=== PATIENT | male | born 1960 | race African-American/Black ===

== ENCOUNTER 2017-10-12 06:57 | Observation (INO) ==
[2017-10-14 22:47] VITALS: BP 92/48
== END 2017-10-14 15:10 | disposition home or self-care (01) ==
LOC: EDUNIT# → EDBD → N.ED 06:57 → N.EDINP 06:57 → SUPCPDRO 09:21 → N.2W 10:59 → N.4E 12:10
PROVIDERS: ADMIT Emergency Medicine; ATTEND Emergency Medicine

== ENCOUNTER 2018-01-08 04:58 | Observation (INO) ==
[2018-01-08] MEDS ORDERED: PANTOPRAZOLE 40 MG VIAL IV STA (05:17)
[2018-01-08] MEDS ORDERED: ONDANSETRON 4 MG/2 ML VIAL IV STA (05:17)
[2018-01-08] MEDS ORDERED: KETOROLAC 30 MG/1 ML VIAL IV STA (05:17)
[2018-01-08 05:42] LABS: Basophils # 0.1 10*3/uL (0.0-0.2); Basophils % 0.7 % (0.0-0.8); Eosinophils # 0.1 10*3/uL (0.0-0.87); Eosinophils % 1.8 % (0.00-10.9); Hematocrit 39.3 VOL% (42.0-52.0); Hemoglobin 12.2 GM/DL (14.0-18.0); Immature Granulocytes % 0.6 %; Immature Granulocytes Absolute 0.04 #; Lymphocytes # 1.6 10*3/uL (1.4-4.0); Lymphocytes % 23.8 % (21.2-54.2); Mean Corpuscular Hemoglobin 26 PG (27-34); Mean Corpuscular Volume 85.1 FL (87-102); Mean Platelet Volume 10.6 FL (9.6-12.0); Monocytes # 0.6 10*3/uL (0.11-0.8); Monocytes % 9.1 % (1.7-12.7); Neutrophils # 4.4 10*3/uL (1.4-7.4); Platelet Count 311 T/CUMM (130-400); Red Blood Count 4.62 MC/CUMM (3.8-5.5); Red Cell Distribution Width 19.4 % (9.3-17.3); White Blood Count 6.8 T/CUMM (4-12)
[2018-01-08] MEDS ORDERED: FUROSEMIDE 40 MG/4 ML VIAL IV STA (05:46)
[2018-01-08 06:11] LABS: Albumin 2.9 G/DL (3.4-5.0); Calcium 8.4 MG/DL (8.5-10.1); Osmolality,Calculated 286.1 MOS/KG (273-304); Potassium 4.2 MMOL/L (3.5-5.1); Total Protein 6.7 G/DL (6.4-8.3)
[2018-01-08] MEDS ORDERED: ONDANSETRON 4 MG/2 ML VIAL IV PRN (10:41)
[2018-01-08] MEDS ORDERED: DOCUSATE SODIUM 100 MG CAPSULE PO PRN (10:41)
[2018-01-08] MEDS ORDERED: LACTULOSE 20 GM/30 ML UDCUP PO PRN (10:41)
[2018-01-08] MEDS ORDERED: MAGNESIUM SULF RIDER 4 GM in PREMIX 1 EACH IV PRN (10:41)
[2018-01-08] MEDS ORDERED: MAGNESIUM SULF RIDER 2 GM in PREMIX 1 EACH IV PRN (10:41)
[2018-01-08] MEDS ORDERED: NICOTINE 21 MG/24 HR PATCH TRANSDERM PRN (10:41)
[2018-01-08] MEDS ORDERED: ALBUTEROL/IPRATROPIUM 3 ML NEB RESP TX PRN (11:10)
[2018-01-08] MEDS: ENOXAPARIN 40 MG/0.4 ML SYRINGE SUBCUT SCH ×2 (13:12→20:49)
[2018-01-08] MEDS: methylPREDNISolone SOD SUC 40 MG/1 ML VIAL IV SCH (14:19)
[2018-01-08] MEDS: FUROSEMIDE 40 MG/4 ML VIAL IV SCH (15:38)
[2018-01-09] MEDS: methylPREDNISolone SOD SUC 40 MG/1 ML VIAL IV SCH (05:56)
[2018-01-09 06:07] LABS: Basophils % 0.2 % (0.0-0.8); Hematocrit 39.1 VOL% (42.0-52.0); Hemoglobin 11.8 GM/DL (14.0-18.0); Immature Granulocytes % 0.2 %; Immature Granulocytes Absolute 0.01 #; Lymphocytes # 0.6 10*3/uL (1.4-4.0); Lymphocytes % 10.8 % (21.2-54.2); Mean Corpuscular HGB Conc 30.2 GM/DL (32-36); Mean Corpuscular Hemoglobin 26 PG (27-34); Mean Corpuscular Volume 85.4 FL (87-102); Mean Platelet Volume 10.8 FL (9.6-12.0); Monocytes # 0.2 10*3/uL (0.11-0.8); Monocytes % 4.2 % (1.7-12.7); Neutrophils # 4.6 10*3/uL (1.4-7.4); Neutrophils % 84.6 % (38.7-73.9); Platelet Count 292 T/CUMM (130-400); Red Blood Count 4.58 MC/CUMM (3.8-5.5); Red Cell Distribution Width 19.3 % (9.3-17.3); White Blood Count 5.5 T/CUMM (4-12)
[2018-01-09 06:34] LABS: Calcium 8.4 MG/DL (8.5-10.1); Osmolality,Calculated 284.5 MOS/KG (273-304); Potassium 4.5 MMOL/L (3.5-5.1)
[2018-01-09] MEDS ORDERED: CARVEDILOL 3.125 MG TABLET PO SCH (10:30)
[2018-01-09] MEDS: FUROSEMIDE 40 MG/4 ML VIAL IV SCH ×2 (10:35→17:32)
[2018-01-09] MEDS: PANTOPRAZOLE 40 MG TABLET PO SCH (10:35)
[2018-01-09] MEDS: SPIRONOLACTONE 25 MG TABLET PO SCH (10:40)
[2018-01-09] MEDS: ENOXAPARIN 40 MG/0.4 ML SYRINGE SUBCUT SCH (21:16)
[2018-01-10 06:20] LABS: Basophils % 0.1 % (0.0-0.8); Hematocrit 37.8 VOL% (42.0-52.0); Hemoglobin 11.7 GM/DL (14.0-18.0); Immature Granulocytes % 0.7 %; Lymphocytes # 0.9 10*3/uL (1.4-4.0); Lymphocytes % 6.2 % (21.2-54.2); Mean Corpuscular Hemoglobin 27 PG (27-34); Mean Corpuscular Volume 85.7 FL (87-102); Mean Platelet Volume 10.4 FL (9.6-12.0); Monocytes % 7.2 % (1.7-12.7); NRBC # 0.02 10*3/uL; Neutrophils # 11.8 10*3/uL (1.4-7.4); Neutrophils % 85.8 % (38.7-73.9); Platelet Count 288 T/CUMM (130-400); Red Blood Count 4.41 MC/CUMM (3.8-5.5); Red Cell Distribution Width 19.3 % (9.3-17.3); White Blood Count 13.7 T/CUMM (4-12)
[2018-01-10 06:52] LABS: Calcium 8.3 MG/DL (8.5-10.1); Osmolality,Calculated 283.7 MOS/KG (273-304); Potassium 4.1 MMOL/L (3.5-5.1)
[2018-01-10] MEDS ORDERED: predniSONE 20 MG TABLET PO SCH (09:00)
[2018-01-10 09:21] VITALS: BP 121/90
[2018-01-10] MEDS: FUROSEMIDE 40 MG/4 ML VIAL IV SCH (10:06)
[2018-01-10] MEDS: SPIRONOLACTONE 25 MG TABLET PO SCH (10:09)
[2018-01-10] MEDS: PANTOPRAZOLE 40 MG TABLET PO SCH (10:09)
== END 2018-01-10 11:50 | disposition home or self-care (01) ==
LOC: EDBD → EDUNIT# → N.ED 04:58 → N.EDINP 04:58 → N.2E 12:55
PROVIDERS: ADMIT Internal Medicine; ATTEND Internal Medicine

== ENCOUNTER 2018-01-16 05:31 | Observation (INO) ==
[2018-01-16] MEDS ORDERED: FUROSEMIDE 100 MG/10 ML VIAL IV STA (06:29)
[2018-01-16 06:37] LABS: Basophils % 0.5 % (0.0-0.8); Eosinophils # 0.1 10*3/uL (0.0-0.87); Eosinophils % 2.2 % (0.00-10.9); Hematocrit 38.3 VOL% (42.0-52.0); Hemoglobin 11.9 GM/DL (14.0-18.0); Immature Granulocytes % 0.5 %; Immature Granulocytes Absolute 0.03 #; Lymphocytes # 1.7 10*3/uL (1.4-4.0); Mean Corpuscular HGB Conc 31.1 GM/DL (32-36); Mean Corpuscular Hemoglobin 27 PG (27-34); Mean Corpuscular Volume 85.9 FL (87-102); Monocytes # 0.8 10*3/uL (0.11-0.8); Monocytes % 13.6 % (1.7-12.7); NRBC # 0.02 10*3/uL; Neutrophils # 3.3 10*3/uL (1.4-7.4); Neutrophils % 55.2 % (38.7-73.9); Platelet Count 251 T/CUMM (130-400); Red Blood Count 4.46 MC/CUMM (3.8-5.5); Red Cell Distribution Width 19.8 % (9.3-17.3)
[2018-01-16 06:52] LABS: Albumin 2.7 G/DL (3.4-5.0); Bilirubin,Total 0.9 MG/DL (0.2-1.0); Calcium 7.8 MG/DL (8.5-10.1); Osmolality,Calculated 283.3 MOS/KG (273-304); Potassium 4.2 MMOL/L (3.5-5.1); Total Protein 6.8 G/DL (6.4-8.3)
[2018-01-16 10:09] LABS: Barbiturates Screen,Urine Negative (Negative); Benzodiazepines Screen,Urine Negative (Negative); Cannabinoid Screen,Urine Negative (Negative); Opiate Screen,Urine Negative (Negative); Phencyclidine Screen,Urine Negative (Negative)
[2018-01-16] MEDS ORDERED: ONDANSETRON 4 MG/2 ML VIAL IV PRN (12:26)
[2018-01-16] MEDS ORDERED: ALBUTEROL 2.5 MG/3 ML NEB RESP TX PRN (12:26)
[2018-01-16] MEDS ORDERED: ACETAMINOPHEN 325 MG TABLET PO PRN (12:26)
[2018-01-16] MEDS ORDERED: DOCUSATE SODIUM 100 MG CAPSULE PO PRN (12:26)
[2018-01-16] MEDS ORDERED: ALBUTEROL/IPRATROPIUM 3 ML NEB RESP TX PRN (12:26)
[2018-01-16] MEDS ORDERED: NICOTINE 21 MG/24 HR PATCH TRANSDERM PRN (12:26)
[2018-01-16] MEDS ORDERED: NON-FORMULARY MEDICATION (Methylprednisolone Dosepak 4 MG) PO SCH (12:26)
[2018-01-16] MEDS: PANTOPRAZOLE 40 MG TABLET PO SCH (12:47)
[2018-01-16] MEDS: ENOXAPARIN 40 MG/0.4 ML SYRINGE SUBCUT SCH (12:47)
[2018-01-16] MEDS ORDERED: methylPREDNISolone 4 MG TABLET PO SCH ×2 (13:00→18:00)
[2018-01-16] MEDS: methylPREDNISolone 4 MG TABLET PO SCH ×3 (14:21→20:40)
[2018-01-16] MEDS: DILTIAZEM 30 MG TABLET PO SCH ×2 (16:23→20:40)
[2018-01-16] MEDS: FUROSEMIDE 40 MG/4 ML VIAL IV SCH (16:24)
[2018-01-17 03:46] LABS: Basophils % 0.2 % (0.0-0.8); Hematocrit 38.7 VOL% (42.0-52.0); Immature Granulocytes % 0.5 %; Immature Granulocytes Absolute 0.03 #; Lymphocytes # 0.7 10*3/uL (1.4-4.0); Lymphocytes % 10.4 % (21.2-54.2); Mean Corpuscular Hemoglobin 26 PG (27-34); Mean Corpuscular Volume 84.7 FL (87-102); Mean Platelet Volume 10.5 FL (9.6-12.0); Monocytes # 0.2 10*3/uL (0.11-0.8); Monocytes % 2.8 % (1.7-12.7); Neutrophils # 5.6 10*3/uL (1.4-7.4); Neutrophils % 86.1 % (38.7-73.9); Platelet Count 242 T/CUMM (130-400); Red Blood Count 4.57 MC/CUMM (3.8-5.5); Red Cell Distribution Width 19.5 % (9.3-17.3); White Blood Count 6.5 T/CUMM (4-12)
[2018-01-17 04:18] LABS: % Iron Saturation 6.9 % (18-50); Calcium 7.8 MG/DL (8.5-10.1); Ferritin 62.2 ng/ml (26-388); Potassium 4.3 MMOL/L (3.5-5.1); Thyroid Stimulating Hormone 0.742 uIU/ml (0.358-3.74)
[2018-01-17 04:21] LABS: Platelet Estimate Normal; Polychromasia Few
[2018-01-17 04:22] LABS: Hypochromasia Slight
[2018-01-17 04:24] LABS: Folate 11.5 NG/ML (5.4-24.0); Vitamin B12 652 PG/ML (211-911)
[2018-01-17 06:39] LABS: Sedimentation Rate-Westergren 14 MM/HR (0-20)
[2018-01-17] MEDS: methylPREDNISolone 4 MG TABLET PO SCH (08:41)
[2018-01-17] MEDS: PANTOPRAZOLE 40 MG TABLET PO SCH (08:41)
[2018-01-17] MEDS: FUROSEMIDE 40 MG/4 ML VIAL IV SCH (08:42)
[2018-01-17] MEDS: DILTIAZEM 30 MG TABLET PO SCH (08:42)
[2018-01-17] MEDS: ENOXAPARIN 40 MG/0.4 ML SYRINGE SUBCUT SCH (11:58)
[2018-01-17 12:28] VITALS: BP 105/74
[2018-01-18 09:00] LABS: Hemoglobin A1 (Alkaline) 97.4 % (96.5-98.5); Hemoglobin A2 (Alkaline) 2.6 % (1.5-3.5)
== END 2018-01-17 12:24 | disposition home or self-care (01) ==
LOC: EDUNIT# → EDBD → N.EDINP 05:31 → N.ED 05:31 → N.2E 11:38
PROVIDERS: ADMIT Internal Medicine; ATTEND Internal Medicine

== ENCOUNTER 2018-02-22 01:02 | Observation (INO) ==
[2018-02-22] MEDS ORDERED: FUROSEMIDE 100 MG/10 ML VIAL IV STA (01:45)
[2018-02-22 01:54] LABS: Basophils % 0.6 % (0.0-0.8); Eosinophils # 0.1 10*3/uL (0.0-0.87); Eosinophils % 1.1 % (0.00-10.9); Hematocrit 38.9 VOL% (42.0-52.0); Hemoglobin 11.7 GM/DL (14.0-18.0); Immature Granulocytes % 0.4 %; Immature Granulocytes Absolute 0.02 #; Lymphocytes # 1.3 10*3/uL (1.4-4.0); Lymphocytes % 23.5 % (21.2-54.2); Mean Corpuscular HGB Conc 30.1 GM/DL (32-36); Mean Corpuscular Hemoglobin 25 PG (27-34); Mean Corpuscular Volume 84.6 FL (87-102); Mean Platelet Volume 10.1 FL (9.6-12.0); Monocytes # 1.1 10*3/uL (0.11-0.8); Monocytes % 19.3 % (1.7-12.7); Neutrophils % 55.1 % (38.7-73.9); Platelet Count 219 T/CUMM (130-400); Red Cell Distribution Width 18.6 % (9.3-17.3); White Blood Count 5.4 T/CUMM (4-12)
[2018-02-22 02:12] LABS: Albumin 2.5 G/DL (3.4-5.0); Bilirubin,Total 0.9 MG/DL (0.2-1.0); Calcium 7.9 MG/DL (8.5-10.1); Osmolality,Calculated 290.6 MOS/KG (273-304); Potassium 3.8 MMOL/L (3.5-5.1)
[2018-02-22 02:25] LABS: Barbiturates Screen,Urine Negative (Negative); Benzodiazepines Screen,Urine Negative (Negative); Cannabinoid Screen,Urine Negative (Negative); Opiate Screen,Urine Negative (Negative); Phencyclidine Screen,Urine Negative (Negative)
[2018-02-22 04:01] LABS: Anisocytosis 1+; Eosinophils 1 % (0-10); Hypochromasia 1+; Lymphocytes 23 % (20-55); Ovalocytes 1+; Platelet Estimate Adequate; Segmented Neutrophils 50 % (50-85); Total Cells Counted 100
[2018-02-22] MEDS ORDERED: ONDANSETRON 4 MG/2 ML VIAL IV PRN (05:19)
[2018-02-22] MEDS ORDERED: LORazepam 2 MG/1 ML VIAL IV PRN (05:19)
[2018-02-22] MEDS ORDERED: NICOTINE 21 MG/24 HR PATCH TRANSDERM PRN (05:19)
[2018-02-22] MEDS ORDERED: ACETAMINOPHEN 325 MG TABLET PO PRN (05:19)
[2018-02-22] MEDS ORDERED: MAGNESIUM SULF RIDER 4 GM in PREMIX 1 EACH IV PRN (05:19)
[2018-02-22] MEDS ORDERED: ALBUTEROL/IPRATROPIUM 3 ML NEB RESP TX PRN (05:19)
[2018-02-22] MEDS ORDERED: LACTULOSE 20 GM/30 ML UDCUP PO PRN (05:19)
[2018-02-22] MEDS ORDERED: diphenhydrAMINE CAP 25 MG CAPSULE PO PRN (05:19)
[2018-02-22] MEDS ORDERED: MAGNESIUM SULF RIDER 2 GM in PREMIX 1 EACH IV PRN (05:19)
[2018-02-22] MEDS ORDERED: chlordiazePOXIDE 25 MG CAPSULE PO PRN (05:19)
[2018-02-22] MEDS ORDERED: hydrALAZINE 20 MG/1 ML VIAL IV PRN (05:48)
[2018-02-22 06:23] LABS: Risk Ratio 3.06; VLDL CHOLESTEROL 10.8 MG/DL
[2018-02-22] MEDS: FUROSEMIDE 40 MG/4 ML VIAL IV SCH ×2 (08:12→16:51)
[2018-02-22] MEDS: PANTOPRAZOLE 40 MG TABLET PO SCH (08:13)
[2018-02-22] MEDS: ENOXAPARIN 40 MG/0.4 ML SYRINGE SUBCUT SCH ×2 (08:13→08:15)
[2018-02-22] MEDS: FOLIC ACID 1 MG TABLET PO SCH (09:16)
[2018-02-22] MEDS: THIAMINE 100 MG TABLET PO SCH (09:16)
[2018-02-22] MEDS: MULTIVITAMIN (OCUVITE) TABLET PO SCH (09:16)
[2018-02-22] MEDS: LISINOPRIL 2.5 MG TABLET PO SCH ×2 (13:03→21:17)
[2018-02-22] MEDS: CARVEDILOL 3.125 MG TABLET PO SCH ×2 (13:03→21:17)
[2018-02-22 13:20] LABS: Apearance,Urine CLEAR (Clear); Bilirubin,Urine Negative (Negative); Blood, Urine Negative (Negative); Glucose,Urine (UA) Negative (Negative); Ketones,Urine Negative (Negative); Mucus,Urine Occasional /LPF (Occasional); Nitrite,Urine Negative (Negative); Protein,Urine Negative; RBC,Urine <1 /HPF (0-4); Urine Color Yellow (Yellow); Urine Specific Gravity 1.008 (1.001-1.035); WBC,Urine 1 /HPF (0-6)
[2018-02-22] MEDS: MORPHINE 4 MG/1 ML VIAL IV PRN ×2 (14:23→21:18)
[2018-02-23 05:53] LABS: Eosinophils # 0.1 10*3/uL (0.0-0.87); Hematocrit 37.3 VOL% (42.0-52.0); Hemoglobin 11.3 GM/DL (14.0-18.0); Immature Granulocytes % 0.5 %; Immature Granulocytes Absolute 0.02 #; Lymphocytes # 1.2 10*3/uL (1.4-4.0); Lymphocytes % 30.5 % (21.2-54.2); Mean Corpuscular HGB Conc 30.3 GM/DL (32-36); Mean Corpuscular Hemoglobin 25 PG (27-34); Mean Corpuscular Volume 83.8 FL (87-102); Mean Platelet Volume 10.2 FL (9.6-12.0); Monocytes # 0.7 10*3/uL (0.11-0.8); Monocytes % 16.4 % (1.7-12.7); Neutrophils % 49.6 % (38.7-73.9); Platelet Count 230 T/CUMM (130-400); Red Blood Count 4.45 MC/CUMM (3.8-5.5); Red Cell Distribution Width 18.5 % (9.3-17.3)
[2018-02-23 06:23] LABS: Eosinophils 2 % (0-10); Hypochromasia 1+; Lymphocytes 29 % (20-55); Platelet Estimate Adequate; Segmented Neutrophils 50 % (50-85); Total Cells Counted 100
[2018-02-23 06:33] LABS: Calcium 8.1 MG/DL (8.5-10.1); Osmolality,Calculated 284.3 MOS/KG (273-304); Potassium 3.4 MMOL/L (3.5-5.1)
[2018-02-23] MEDS ORDERED: POTASSIUM CHLORIDE 20 MEQ TABLET PO ONE (09:05)
[2018-02-23] MEDS: CARVEDILOL 3.125 MG TABLET PO SCH ×2 (09:29→21:18)
[2018-02-23] MEDS: LISINOPRIL 2.5 MG TABLET PO SCH ×2 (09:29→21:17)
[2018-02-23] MEDS: FOLIC ACID 1 MG TABLET PO SCH (09:29)
[2018-02-23] MEDS: MULTIVITAMIN (OCUVITE) TABLET PO SCH (09:29)
[2018-02-23] MEDS: ENOXAPARIN 40 MG/0.4 ML SYRINGE SUBCUT SCH ×2 (09:30→10:09)
[2018-02-23] MEDS: FUROSEMIDE 40 MG/4 ML VIAL IV SCH ×2 (09:30→15:18)
[2018-02-23] MEDS: PANTOPRAZOLE 40 MG TABLET PO SCH (10:37)
[2018-02-23] MEDS: THIAMINE 100 MG TABLET PO SCH (10:37)
[2018-02-23] MEDS: MORPHINE 4 MG/1 ML VIAL IV PRN ×2 (10:49→21:17)
[2018-02-24 05:47] LABS: Basophils # 0.1 10*3/uL (0.0-0.2); Basophils % 0.9 % (0.0-0.8); Eosinophils # 0.1 10*3/uL (0.0-0.87); Eosinophils % 1.8 % (0.00-10.9); Hemoglobin 11.4 GM/DL (14.0-18.0); Immature Granulocytes % 0.2 %; Immature Granulocytes Absolute 0.01 #; Lymphocytes # 1.7 10*3/uL (1.4-4.0); Lymphocytes % 31.6 % (21.2-54.2); Mean Corpuscular Hemoglobin 25 PG (27-34); Mean Corpuscular Volume 84.4 FL (87-102); Mean Platelet Volume 10.3 FL (9.6-12.0); Monocytes # 0.9 10*3/uL (0.11-0.8); Monocytes % 17.2 % (1.7-12.7); Neutrophils # 2.7 10*3/uL (1.4-7.4); Neutrophils % 48.3 % (38.7-73.9); Platelet Count 263 T/CUMM (130-400); Red Cell Distribution Width 18.5 % (9.3-17.3); White Blood Count 5.5 T/CUMM (4-12)
[2018-02-24 06:05] LABS: Calcium 8.3 MG/DL (8.5-10.1); Osmolality,Calculated 280.5 MOS/KG (273-304); Potassium 3.6 MMOL/L (3.5-5.1)
[2018-02-24 06:37] LABS: Eosinophils 1 % (0-10); Hypochromasia 1+; Lymphocytes 37 % (20-55); Platelet Estimate Adequate; Segmented Neutrophils 50 % (50-85); Total Cells Counted 100
[2018-02-24] MEDS: FUROSEMIDE 40 MG/4 ML VIAL IV SCH (09:05)
[2018-02-24] MEDS: ENOXAPARIN 40 MG/0.4 ML SYRINGE SUBCUT SCH ×2 (09:05→09:13)
[2018-02-24] MEDS: MULTIVITAMIN (OCUVITE) TABLET PO SCH (09:06)
[2018-02-24] MEDS: LISINOPRIL 2.5 MG TABLET PO SCH (09:06)
[2018-02-24] MEDS: CARVEDILOL 3.125 MG TABLET PO SCH (09:06)
[2018-02-24] MEDS: PANTOPRAZOLE 40 MG TABLET PO SCH (09:06)
[2018-02-24] MEDS: FOLIC ACID 1 MG TABLET PO SCH (09:06)
[2018-02-24] MEDS: THIAMINE 100 MG TABLET PO SCH (09:06)
[2018-02-24 12:07] VITALS: BP 96/68
== END 2018-02-24 15:16 | disposition home or self-care (01) ==
LOC: EDUNIT# → EDBD → N.ED 01:02 → INTOOBSV 05:19 → N.EDINP 05:19 → N.TELEN 05:50
PROVIDERS: ADMIT Internal Medicine; ATTEND Internal Medicine

== ENCOUNTER 2018-04-22 00:50 | Observation (INO) ==
[2018-04-22 02:04] LABS: Basophils % 0.6 % (0.0-0.8); Eosinophils # 0.1 10*3/uL (0.0-0.87); Hematocrit 38.8 VOL% (42.0-52.0); Immature Granulocytes % 0.1 %; Immature Granulocytes Absolute 0.01 #; Lymphocytes # 1.3 10*3/uL (1.4-4.0); Lymphocytes % 19.3 % (21.2-54.2); Mean Corpuscular HGB Conc 28.6 GM/DL (32-36); Mean Corpuscular Hemoglobin 24 PG (27-34); Mean Platelet Volume 10.8 FL (9.6-12.0); Monocytes % 14.6 % (1.7-12.7); Neutrophils # 4.4 10*3/uL (1.4-7.4); Neutrophils % 64.4 % (38.7-73.9); Platelet Count 241 T/CUMM (130-400); Red Blood Count 4.62 MC/CUMM (3.8-5.5); Red Cell Distribution Width 19.6 % (9.3-17.3); White Blood Count 6.8 T/CUMM (4-12)
[2018-04-22 02:05] LABS: Hemoglobin 11.1 GM/DL (14.0-18.0)
[2018-04-22 02:23] LABS: Albumin 2.9 G/DL (3.4-5.0); Bilirubin,Total 1.1 MG/DL (0.2-1.0); Osmolality,Calculated 278.5 MOS/KG (273-304); Potassium 3.8 MMOL/L (3.5-5.1)
[2018-04-22] MEDS ORDERED: ONDANSETRON 4 MG/2 ML VIAL IV PRN (03:46)
[2018-04-22] MEDS ORDERED: FUROSEMIDE 40 MG/4 ML VIAL IV STA (03:50)
[2018-04-22] MEDS ORDERED: ENOXAPARIN 40 MG/0.4 ML SYRINGE SUBCUT SCH (04:00)
[2018-04-22 04:56] LABS: Risk Ratio 2.9
[2018-04-22 05:11] LABS: Platelet Estimate Adequate; Polychromasia Few
[2018-04-22] MEDS: ALBUTEROL/IPRATROPIUM 3 ML NEB RESP TX SCH ×3 (07:30→19:25)
[2018-04-22] MEDS ORDERED: DEXTROSE 50% 25 GM/50 ML VIAL IV PRN (07:45)
[2018-04-22] MEDS ORDERED: GLUCAGON 1 MG VIAL IM PRN (07:45)
[2018-04-22 08:18] LABS: Basophils % 0.5 % (0.0-0.8); Eosinophils # 0.1 10*3/uL (0.0-0.87); Hematocrit 40.2 VOL% (42.0-52.0); Hemoglobin 11.9 GM/DL (14.0-18.0); Immature Granulocytes % 0.5 %; Immature Granulocytes Absolute 0.03 #; Lymphocytes # 1.3 10*3/uL (1.4-4.0); Lymphocytes % 20.9 % (21.2-54.2); Mean Corpuscular HGB Conc 29.6 GM/DL (32-36); Mean Corpuscular Hemoglobin 25 PG (27-34); Mean Corpuscular Volume 83.4 FL (87-102); Mean Platelet Volume 10.4 FL (9.6-12.0); Monocytes % 15.9 % (1.7-12.7); Neutrophils # 3.7 10*3/uL (1.4-7.4); Neutrophils % 61.2 % (38.7-73.9); Platelet Count 234 T/CUMM (130-400); Red Blood Count 4.82 MC/CUMM (3.8-5.5); Red Cell Distribution Width 19.9 % (9.3-17.3)
[2018-04-22 08:28] LABS: Calcium 8.3 MG/DL (8.5-10.1); Osmolality,Calculated 278.5 MOS/KG (273-304); Potassium 3.7 MMOL/L (3.5-5.1)
[2018-04-22 08:34] LABS: Eosinophils 2 % (0-10); Lymphocytes 23 % (20-55); Segmented Neutrophils 63 % (50-85); Total Cells Counted 100
[2018-04-22 08:35] LABS: Hypochromasia 1+; Platelet Estimate Adequate
[2018-04-22] MEDS: FOLIC ACID 1 MG TABLET PO SCH (08:52)
[2018-04-22] MEDS: LISINOPRIL 2.5 MG TABLET PO SCH ×2 (08:52→20:26)
[2018-04-22] MEDS: FUROSEMIDE 40 MG/4 ML VIAL IV SCH ×2 (08:52→16:55)
[2018-04-22] MEDS: metFORMIN 500 MG TABLET PO SCH (08:52)
[2018-04-22] MEDS: DILTIAZEM 30 MG TABLET PO SCH ×3 (08:53→20:26)
[2018-04-22] MEDS: RIVAROXABAN 15 MG TABLET PO SCH ×2 (08:53→16:55)
[2018-04-22] MEDS: ASPIRIN EC 325 MG TABLET PO SCH (08:53)
[2018-04-22] MEDS: PANTOPRAZOLE 40 MG TABLET PO SCH (08:53)
[2018-04-22] MEDS: FERROUS SULFATE 325 MG TABLET PO SCH (08:53)
[2018-04-22 09:00] LABS: Apearance,Urine CLEAR (Clear); Bacteria,Urine Occasional /HPF (Few); Barbiturates Screen,Urine Negative (Negative); Benzodiazepines Screen,Urine Negative (Negative); Bilirubin,Urine Negative (Negative); Blood, Urine Negative (Negative); Cannabinoid Screen,Urine Negative (Negative); Glucose,Urine (UA) Negative (Negative); Ketones,Urine Negative (Negative); Mucus,Urine Occasional /LPF (Occasional); Nitrite,Urine Negative (Negative); Opiate Screen,Urine Negative (Negative); Phencyclidine Screen,Urine Negative (Negative); Protein,Urine Negative; RBC,Urine 1 /HPF (0-4); Urine Color Colorless (Yellow); Urine Specific Gravity 1.004 (1.001-1.035); Urine Urobilinogen < 2.0 EU/DL (0.2-1.0)
[2018-04-22] MEDS ORDERED: FUROSEMIDE 40 MG/4 ML VIAL IV SCH (09:00)
[2018-04-22] MEDS ORDERED: SPIRONOLACTONE 25 MG TABLET PO SCH (09:00)
[2018-04-22] MEDS: INSULIN REGULAR 100 UNIT/ML SUBCUT SCH ×4 (10:10→20:26)
[2018-04-22] MEDS: CARVEDILOL 3.125 MG TABLET PO SCH ×2 (10:12→20:26)
[2018-04-23] MEDS: ALBUTEROL/IPRATROPIUM 3 ML NEB RESP TX SCH ×2 (00:45→07:48)
[2018-04-23 04:50] LABS: Basophils % 0.8 % (0.0-0.8); Eosinophils # 0.1 10*3/uL (0.0-0.87); Eosinophils % 2.3 % (0.00-10.9); Hematocrit 36.4 VOL% (42.0-52.0); Hemoglobin 10.9 GM/DL (14.0-18.0); Immature Granulocytes % 0.4 %; Immature Granulocytes Absolute 0.02 #; Mean Corpuscular HGB Conc 29.9 GM/DL (32-36); Mean Corpuscular Hemoglobin 25 PG (27-34); Mean Corpuscular Volume 82.5 FL (87-102); Mean Platelet Volume 10.7 FL (9.6-12.0); Monocytes # 0.8 10*3/uL (0.11-0.8); Monocytes % 17.4 % (1.7-12.7); Neutrophils # 2.8 10*3/uL (1.4-7.4); Neutrophils % 58.1 % (38.7-73.9); Platelet Count 231 T/CUMM (130-400); Red Blood Count 4.41 MC/CUMM (3.8-5.5); Red Cell Distribution Width 19.5 % (9.3-17.3); White Blood Count 4.8 T/CUMM (4-12)
[2018-04-23 05:05] LABS: Eosinophils 4 % (0-10); Lymphocytes 25 % (20-55); Platelet Estimate Adequate; Segmented Neutrophils 60 % (50-85); Total Cells Counted 100
[2018-04-23 05:06] LABS: Hypochromasia 1+
[2018-04-23 05:08] LABS: Albumin 2.4 G/DL (3.4-5.0); Calcium 8.1 MG/DL (8.5-10.1); Osmolality,Calculated 278.5 MOS/KG (273-304); Potassium 3.6 MMOL/L (3.5-5.1); Total Protein 6.7 G/DL (6.4-8.3)
[2018-04-23] MEDS: INSULIN REGULAR 100 UNIT/ML SUBCUT SCH (07:30)
[2018-04-23 07:54] VITALS: BP 105/85
[2018-04-23] MEDS: ASPIRIN EC 325 MG TABLET PO SCH (08:47)
[2018-04-23] MEDS: LISINOPRIL 2.5 MG TABLET PO SCH (08:47)
[2018-04-23] MEDS: PANTOPRAZOLE 40 MG TABLET PO SCH (08:47)
[2018-04-23] MEDS: FOLIC ACID 1 MG TABLET PO SCH (08:47)
[2018-04-23] MEDS: metFORMIN 500 MG TABLET PO SCH (08:47)
[2018-04-23] MEDS: FERROUS SULFATE 325 MG TABLET PO SCH (08:48)
[2018-04-23] MEDS: DILTIAZEM 30 MG TABLET PO SCH (08:48)
[2018-04-23] MEDS: CARVEDILOL 3.125 MG TABLET PO SCH (08:48)
[2018-04-23] MEDS: FUROSEMIDE 40 MG/4 ML VIAL IV SCH (08:48)
[2018-04-23] MEDS: RIVAROXABAN 15 MG TABLET PO SCH (08:48)
[2018-04-23] MEDS ORDERED: MAGNESIUM OXIDE 400 MG TABLET PO ONE (09:00)
== END 2018-04-23 10:42 | disposition home or self-care (01) ==
LOC: EDBD → EDUNIT# → N.EDINP 00:50 → N.ED 00:50 → SUATTDRO 03:46 → N.2E 04:38
PROVIDERS: ADMIT Internal Medicine; ATTEND Internal Medicine Nephrology

== ENCOUNTER 2018-12-10 13:04 | Inpatient (IN) ==
[2018-12-10] MEDS ORDERED: ALBUTEROL/IPRATROPIUM 3 ML NEB RESP TX STA (13:23)
[2018-12-10] MEDS ORDERED: FUROSEMIDE 100 MG/10 ML VIAL IV STA (13:23)
[2018-12-10] MEDS ORDERED: ONDANSETRON 4 MG/2 ML VIAL IV STA (13:23)
[2018-12-10] MEDS ORDERED: FUROSEMIDE 40 MG/4 ML VIAL ONE (13:35)
[2018-12-10 13:37] LABS: Basophils % 0.6 % (0.0-0.8); Eosinophils # 0.1 10*3/uL (0.0-0.87); Eosinophils % 1.5 % (0.00-10.9); Hematocrit 39.5 VOL% (42.0-52.0); Hemoglobin 12.2 GM/DL (14.0-18.0); Immature Granulocytes % 0.4 %; Immature Granulocytes Absolute 0.02 #; Lymphocytes # 0.7 10*3/uL (1.4-4.0); Mean Corpuscular HGB Conc 30.9 GM/DL (32-36); Mean Corpuscular Volume 90.2 FL (87-102); Mean Platelet Volume 9.6 FL (9.6-12.0); Monocytes % 15.7 % (1.7-12.7); Neutrophils % 67.8 % (38.7-73.9); Platelet Count 201 T/CUMM (130-400); Red Blood Count 4.38 MC/CUMM (3.8-5.5); Red Cell Distribution Width 18.2 % (9.3-17.3); White Blood Count 4.7 T/CUMM (4-12)
[2018-12-10 13:51] LABS: INR 1.2; PT Patient Result 12.6 SECS (9.6-12.2); Partial Thromboplastin Time 24.4 SECS (20.8-36.0)
[2018-12-10 13:58] LABS: Alanine Aminotransferase 13 U/L (16-61); Albumin 3.1 G/DL (3.4-5.0); Alkaline Phosphatase 178 U/L (45-117); Aspartate Amino Transferase 22 U/L (0-37); Blood Urea Nitrogen 17 MG/DL (7-18); Calcium 8.5 MG/DL (8.5-10.1); Glucose 93 MG/DL (74-106); Osmolality,Calculated 274.8 MOS/KG (273-304); Total Protein 8.3 G/DL (6.4-8.3); Troponin I 0.028 NG/ML (0.00-0.045)
[2018-12-10 14:01] LABS: Barbiturates Screen,Urine Negative (Negative); Benzodiazepines Screen,Urine Negative (Negative); Cannabinoid Screen,Urine Negative (Negative); Opiate Screen,Urine Negative (Negative); Phencyclidine Screen,Urine Negative (Negative)
[2018-12-10 14:06] LABS: Apearance,Urine CLEAR (Clear); Bacteria,Urine Occasional /HPF (Few); Bilirubin,Urine Negative (Negative); Blood, Urine Negative (Negative); Glucose,Urine (UA) Negative (Negative); Hyaline Casts,Urine 15 /LPF (0-3); Ketones,Urine Negative (Negative); Mucus,Urine Occasional /LPF (Occasional); Nitrite,Urine Negative (Negative); Protein,Urine Negative; RBC,Urine 2 /HPF (0-4); Squamous Epithelial Cell,Urine Occasional /HPF (0-10); Urine Color Yellow (Yellow); Urine Specific Gravity 1.006 (1.001-1.035); WBC,Urine <1 /HPF (0-6)
[2018-12-10] MEDS ORDERED: GLUCAGON 1 MG VIAL IM PRN (15:07)
[2018-12-10] MEDS ORDERED: ACETAMINOPHEN 325 MG TABLET PO PRN (15:07)
[2018-12-10] MEDS ORDERED: DEXTROSE 10% 250 ML BAG IV PRN (15:07)
[2018-12-10] MEDS ORDERED: ONDANSETRON 4 MG/2 ML VIAL IV PRN (15:07)
[2018-12-10] MEDS ORDERED: POTASSIUM CHLORIDE 20 MEQ TABLET PO PRN (15:28)
[2018-12-10 15:54] LABS: Eosinophils 2 % (0-10); Lymphocytes 18 % (20-55); Segmented Neutrophils 67 % (50-85); Total Cells Counted 100
[2018-12-10 15:55] LABS: Platelet Estimate Normal
[2018-12-10 15:56] LABS: Anisocytosis 2+; Poikilocytosis 1+; Polychromasia Few
[2018-12-10 15:57] LABS: Microcytosis Slight; Target Cells Few; Thyroid Stimulating Hormone 2.44 uIU/ml (0.358-3.74)
[2018-12-10] MEDS: FUROSEMIDE 40 MG/4 ML VIAL IV SCH (16:56)
[2018-12-10] MEDS: INSULIN REGULAR 100 UNIT/ML SUBCUT SCH ×2 (16:56→20:45)
[2018-12-10] MEDS: POTASSIUM CHLORIDE 20 MEQ TABLET PO SCH (20:44)
[2018-12-10] MEDS: ENOXAPARIN 40 MG/0.4 ML SYRINGE SUBCUT SCH (20:45)
[2018-12-11 05:01] LABS: Basophils % 0.9 % (0.0-0.8); Eosinophils # 0.1 10*3/uL (0.0-0.87); Eosinophils % 2.7 % (0.00-10.9); Hematocrit 36.7 VOL% (42.0-52.0); Hemoglobin 11.2 GM/DL (14.0-18.0); Immature Granulocytes % 0.5 %; Immature Granulocytes Absolute 0.02 #; Lymphocytes # 0.8 10*3/uL (1.4-4.0); Mean Corpuscular HGB Conc 30.5 GM/DL (32-36); Mean Platelet Volume 10.1 FL (9.6-12.0); Monocytes % 16.8 % (1.7-12.7); Neutrophils % 62.1 % (38.7-73.9); Platelet Count 203 T/CUMM (130-400); Red Blood Count 4.08 MC/CUMM (3.8-5.5); White Blood Count 4.4 T/CUMM (4-12)
[2018-12-11 05:32] LABS: Calcium 8.4 MG/DL (8.5-10.1); Osmolality,Calculated 280.5 MOS/KG (273-304); Risk Ratio 2.62; VLDL CHOLESTEROL 7.8 MG/DL
[2018-12-11 05:42] LABS: Band Neutrophils 1 % (0-10); Eosinophils 2 % (0-10); Lymphocytes 18 % (20-55); Myelocytes 1 %; Segmented Neutrophils 62 % (50-85); Total Cells Counted 100
[2018-12-11 05:43] LABS: Anisocytosis 1+; Hypochromasia 1+; Platelet Estimate Adequate; Target Cells 1+
[2018-12-11] MEDS: PANTOPRAZOLE 40 MG TABLET PO SCH (08:28)
[2018-12-11] MEDS: POTASSIUM CHLORIDE 20 MEQ TABLET PO SCH ×2 (08:28→20:48)
[2018-12-11] MEDS: FUROSEMIDE 40 MG/4 ML VIAL IV SCH ×2 (08:29→15:59)
[2018-12-11] MEDS: INSULIN REGULAR 100 UNIT/ML SUBCUT SCH ×4 (08:32→20:49)
[2018-12-11] MEDS ORDERED: amLODIPine 10 MG TABLET PO SCH (09:00)
[2018-12-11] MEDS: ENOXAPARIN 40 MG/0.4 ML SYRINGE SUBCUT SCH (20:48)
[2018-12-11] MEDS: LOSARTAN 25 MG TABLET PO SCH (20:49)
[2018-12-11] MEDS: CARVEDILOL 3.125 MG TABLET PO SCH (20:49)
[2018-12-12 06:13] LABS: Basophils % 0.8 % (0.0-0.8); Eosinophils # 0.1 10*3/uL (0.0-0.87); Eosinophils % 1.9 % (0.00-10.9); Hematocrit 37.2 VOL% (42.0-52.0); Hemoglobin 11.4 GM/DL (14.0-18.0); Immature Granulocytes % 0.2 %; Immature Granulocytes Absolute 0.01 #; Lymphocytes # 0.7 10*3/uL (1.4-4.0); Lymphocytes % 14.2 % (21.2-54.2); Mean Corpuscular HGB Conc 30.6 GM/DL (32-36); Mean Corpuscular Volume 91.9 FL (87-102); Mean Platelet Volume 10.2 FL (9.6-12.0); Monocytes % 17.3 % (1.7-12.7); Neutrophils % 65.6 % (38.7-73.9); Platelet Count 201 T/CUMM (130-400); Red Blood Count 4.05 MC/CUMM (3.8-5.5); Red Cell Distribution Width 18.1 % (9.3-17.3); White Blood Count 4.8 T/CUMM (4-12)
[2018-12-12 06:46] LABS: Anisocytosis 1+; Eosinophils 2 % (0-10); Hypochromasia Slight; Lymphocytes 20 % (20-55); Microcytosis 1+; Segmented Neutrophils 66 % (50-85); Total Cells Counted 100
[2018-12-12 06:47] LABS: Platelet Estimate Normal; Target Cells Slight
[2018-12-12 06:49] LABS: Calcium 8.5 MG/DL (8.5-10.1); Osmolality,Calculated 275.1 MOS/KG (273-304)
[2018-12-12] MEDS: INSULIN REGULAR 100 UNIT/ML SUBCUT SCH ×4 (08:03→22:18)
[2018-12-12] MEDS: ASPIRIN EC 81 MG TABLET PO SCH (09:19)
[2018-12-12] MEDS: PANTOPRAZOLE 40 MG TABLET PO SCH (09:19)
[2018-12-12] MEDS: SPIRONOLACTONE 25 MG TABLET PO SCH (09:19)
[2018-12-12] MEDS: CARVEDILOL 3.125 MG TABLET PO SCH (09:19)
[2018-12-12] MEDS: POTASSIUM CHLORIDE 20 MEQ TABLET PO SCH ×2 (09:19→21:28)
[2018-12-12] MEDS: LOSARTAN 25 MG TABLET PO SCH ×2 (09:19→20:01)
[2018-12-12] MEDS: FUROSEMIDE 40 MG/4 ML VIAL IV SCH ×2 (09:21→16:59)
[2018-12-12] MEDS: NYSTATIN POWDER 15 GM BOTTLE TOP SCH ×2 (09:38→21:30)
[2018-12-12] MEDS: CARVEDILOL 6.25 MG TABLET PO SCH (16:58)
[2018-12-12] MEDS: ENOXAPARIN 40 MG/0.4 ML SYRINGE SUBCUT SCH (21:28)
[2018-12-13 05:43] LABS: Basophils % 0.4 % (0.0-0.8); Eosinophils # 0.1 10*3/uL (0.0-0.87); Eosinophils % 1.9 % (0.00-10.9); Hematocrit 36.5 VOL% (42.0-52.0); Hemoglobin 11.3 GM/DL (14.0-18.0); Immature Granulocytes % 0.2 %; Immature Granulocytes Absolute 0.01 #; Lymphocytes # 0.8 10*3/uL (1.4-4.0); Lymphocytes % 16.4 % (21.2-54.2); Mean Corpuscular Volume 90.6 FL (87-102); Mean Platelet Volume 10.3 FL (9.6-12.0); Monocytes % 23.4 % (1.7-12.7); Neutrophils % 57.7 % (38.7-73.9); Platelet Count 178 T/CUMM (130-400); Red Blood Count 4.03 MC/CUMM (3.8-5.5); White Blood Count 4.7 T/CUMM (4-12)
[2018-12-13 06:12] LABS: Eosinophils 1 % (0-10); Hypochromasia 1+; Lymphocytes 16 % (20-55); Platelet Estimate Adequate; Segmented Neutrophils 63 % (50-85); Total Cells Counted 100
[2018-12-13 06:26] LABS: Albumin 2.7 G/DL (3.4-5.0); Bilirubin,Total 1.2 MG/DL (0.2-1.0); Calcium 8.4 MG/DL (8.5-10.1); Osmolality,Calculated 277.1 MOS/KG (273-304); Total Protein 7.7 G/DL (6.4-8.3)
[2018-12-13] MEDS: INSULIN REGULAR 100 UNIT/ML SUBCUT SCH ×4 (07:34→20:59)
[2018-12-13] MEDS: PANTOPRAZOLE 40 MG TABLET PO SCH (08:56)
[2018-12-13] MEDS: CARVEDILOL 6.25 MG TABLET PO SCH (08:56)
[2018-12-13] MEDS: POTASSIUM CHLORIDE 20 MEQ TABLET PO SCH ×2 (08:56→20:49)
[2018-12-13] MEDS: LOSARTAN 25 MG TABLET PO SCH (08:56)
[2018-12-13] MEDS: SPIRONOLACTONE 25 MG TABLET PO SCH (08:56)
[2018-12-13] MEDS: FUROSEMIDE 40 MG/4 ML VIAL IV SCH ×2 (08:57→17:05)
[2018-12-13] MEDS: ASPIRIN EC 81 MG TABLET PO SCH (08:57)
[2018-12-13] MEDS: NYSTATIN POWDER 15 GM BOTTLE TOP SCH ×2 (08:58→22:51)
[2018-12-13] MEDS: SACUBITRIL/VALSARTAN 49-51 MG TABLET PO SCH (20:48)
[2018-12-13] MEDS: METOPROLOL SUCCINATE XL 25 MG TABLET PO SCH (20:49)
[2018-12-13] MEDS: buPROPion 100 MG TABLET PO SCH (20:49)
[2018-12-13] MEDS: ENOXAPARIN 40 MG/0.4 ML SYRINGE SUBCUT SCH (20:53)
[2018-12-14 06:04] LABS: Basophils % 0.8 % (0.0-0.8); Eosinophils # 0.1 10*3/uL (0.0-0.87); Eosinophils % 2.3 % (0.00-10.9); Hematocrit 38.8 VOL% (42.0-52.0); Hemoglobin 12.1 GM/DL (14.0-18.0); Immature Granulocytes % 0.5 %; Immature Granulocytes Absolute 0.02 #; Lymphocytes # 0.8 10*3/uL (1.4-4.0); Lymphocytes % 19.1 % (21.2-54.2); Mean Corpuscular HGB Conc 31.2 GM/DL (32-36); Mean Platelet Volume 10.4 FL (9.6-12.0); Monocytes % 18.6 % (1.7-12.7); Neutrophils % 58.7 % (38.7-73.9); Platelet Count 218 T/CUMM (130-400); Red Blood Count 4.31 MC/CUMM (3.8-5.5)
[2018-12-14 06:25] LABS: Calcium 8.3 MG/DL (8.5-10.1); Osmolality,Calculated 278.1 MOS/KG (273-304)
[2018-12-14 06:34] LABS: Band Neutrophils 3 % (0-10); Eosinophils 3 % (0-10); Lymphocytes 17 % (20-55); Segmented Neutrophils 58 % (50-85); Total Cells Counted 100
[2018-12-14 06:35] LABS: Anisocytosis 1+; Platelet Estimate Adequate; Target Cells 1+
[2018-12-14] MEDS: INSULIN REGULAR 100 UNIT/ML SUBCUT SCH ×2 (08:17→11:59)
[2018-12-14] MEDS: SPIRONOLACTONE 25 MG TABLET PO SCH (09:02)
[2018-12-14] MEDS: SACUBITRIL/VALSARTAN 49-51 MG TABLET PO SCH (09:02)
[2018-12-14] MEDS: METOPROLOL SUCCINATE XL 25 MG TABLET PO SCH (09:02)
[2018-12-14] MEDS: buPROPion 100 MG TABLET PO SCH (09:03)
[2018-12-14] MEDS: FUROSEMIDE 40 MG/4 ML VIAL IV SCH (09:03)
[2018-12-14] MEDS: PANTOPRAZOLE 40 MG TABLET PO SCH (09:03)
[2018-12-14] MEDS: ASPIRIN EC 81 MG TABLET PO SCH (09:03)
[2018-12-14] MEDS: POTASSIUM CHLORIDE 20 MEQ TABLET PO SCH (09:03)
[2018-12-14] MEDS: NYSTATIN POWDER 15 GM BOTTLE TOP SCH (09:11)
[2018-12-14 11:50] VITALS: BP 100/67
[2018-12-14] MEDS ORDERED: FUROSEMIDE 80 MG TABLET PO SCH (16:00)
== END 2018-12-14 15:41 | disposition home or self-care (01) | DRG 194 ==
LOC: EDBD → EDUNIT# → N.ED 13:04 → SUATTDRO 15:07 → N.EDINP 15:07 → N.2E 16:12
PROVIDERS: ADMIT Hospitalist

== ENCOUNTER 2019-04-04 03:39 | Inpatient (IN) ==
[2019-04-04] MEDS ORDERED: FUROSEMIDE 40 MG/4 ML VIAL IV STA (03:54)
[2019-04-04 04:07] LABS: Basophils % 0.5 % (0.0-0.8); Eosinophils # 0.1 10*3/uL (0.0-0.87); Eosinophils % 0.7 % (0.00-10.9); Hematocrit 42.1 VOL% (42.0-52.0); Immature Granulocytes % 0.4 %; Immature Granulocytes Absolute 0.03 #; Lymphocytes # 0.8 10*3/uL (1.4-4.0); Lymphocytes % 9.1 % (21.2-54.2); Mean Corpuscular HGB Conc 29.7 GM/DL (32-36); Mean Corpuscular Volume 92.9 FL (87-102); Mean Platelet Volume 9.9 FL (9.6-12.0); Neutrophils % 76.3 % (38.7-73.9); Platelet Count 256 T/CUMM (130-400); Red Blood Count 4.53 MC/CUMM (3.8-5.5); White Blood Count 8.3 T/CUMM (4-12)
[2019-04-04 04:12] LABS: Hemoglobin 12.7 GM/DL (14.0-18.0)
[2019-04-04 04:30] LABS: Albumin 2.7 G/DL (3.4-5.0); Bilirubin,Total 1.3 MG/DL (0.2-1.0); Calcium 8.5 MG/DL (8.5-10.1); Osmolality,Calculated 280.4 MOS/KG (273-304); Total Protein 8.4 G/DL (6.4-8.3)
[2019-04-04 05:15] LABS: Barbiturates Screen,Urine Negative (Negative); Benzodiazepines Screen,Urine Negative (Negative); Cannabinoid Screen,Urine Negative (Negative); Opiate Screen,Urine Negative (Negative); Phencyclidine Screen,Urine Negative (Negative)
[2019-04-04] MEDS ORDERED: ONDANSETRON 4 MG/2 ML VIAL IV PRN (05:48)
[2019-04-04] MEDS ORDERED: NICOTINE 21 MG/24 HR PATCH TRANSDERM PRN (05:48)
[2019-04-04] MEDS ORDERED: guaiFENesin/DM ER 600-30 MG TABLET PO PRN (05:48)
[2019-04-04] MEDS ORDERED: hydrALAZINE 20 MG/1 ML VIAL IV PRN (05:48)
[2019-04-04 07:06] LABS: Risk Ratio 2.85; VLDL CHOLESTEROL 13.2 MG/DL
[2019-04-04] MEDS: ALBUTEROL/IPRATROPIUM 3 ML NEB RESP TX SCH ×3 (07:13→20:05)
[2019-04-04] MEDS: ASPIRIN EC 81 MG TABLET PO SCH (08:43)
[2019-04-04] MEDS: SPIRONOLACTONE 25 MG TABLET PO SCH (08:43)
[2019-04-04] MEDS: METOPROLOL SUCCINATE XL 25 MG TABLET PO SCH (08:44)
[2019-04-04] MEDS ORDERED: LOSARTAN 50 MG TABLET PO SCH (09:00)
[2019-04-04] MEDS ORDERED: POTASSIUM CHLORIDE 20 MEQ TABLET PO SCH (09:00)
[2019-04-04] MEDS: MORPHINE 4 MG/1 ML VIAL IV PRN (10:17)
[2019-04-04] MEDS ORDERED: FUROSEMIDE 40 MG/4 ML VIAL ONE (15:35)
[2019-04-04] MEDS: FUROSEMIDE 100 MG/10 ML VIAL IV SCH (15:45)
[2019-04-04] MEDS: SACUBITRIL/VALSARTAN 49-51 MG TABLET PO SCH (22:53)
[2019-04-05] MEDS: ALBUTEROL/IPRATROPIUM 3 ML NEB RESP TX SCH ×4 (00:27→19:19)
[2019-04-05 03:43] LABS: Basophils % 0.4 % (0.0-0.8); Eosinophils # 0.1 10*3/uL (0.0-0.87); Eosinophils % 1.1 % (0.00-10.9); Immature Granulocytes % 0.5 %; Immature Granulocytes Absolute 0.04 #; Lymphocytes # 0.6 10*3/uL (1.4-4.0); Lymphocytes % 8.2 % (21.2-54.2); Mean Corpuscular HGB Conc 30.6 GM/DL (32-36); Mean Corpuscular Volume 90.7 FL (87-102); Mean Platelet Volume 9.3 FL (9.6-12.0); Monocytes % 14.6 % (1.7-12.7); Neutrophils % 75.2 % (38.7-73.9); Platelet Count 201 T/CUMM (130-400); Red Blood Count 3.97 MC/CUMM (3.8-5.5); Red Cell Distribution Width 17.6 % (9.3-17.3); White Blood Count 7.6 T/CUMM (4-12)
[2019-04-05 04:01] LABS: Osmolality,Calculated 278.5 MOS/KG (273-304)
[2019-04-05] MEDS: MORPHINE 4 MG/1 ML VIAL IV PRN ×3 (05:08→21:55)
[2019-04-05] MEDS ORDERED: FUROSEMIDE 40 MG/4 ML VIAL ONE (08:51)
[2019-04-05] MEDS: SPIRONOLACTONE 25 MG TABLET PO SCH (08:55)
[2019-04-05] MEDS: SACUBITRIL/VALSARTAN 49-51 MG TABLET PO SCH ×2 (08:56→21:08)
[2019-04-05] MEDS: METOPROLOL SUCCINATE XL 25 MG TABLET PO SCH ×2 (08:56→21:08)
[2019-04-05] MEDS: ASPIRIN EC 81 MG TABLET PO SCH (08:56)
[2019-04-05] MEDS: FUROSEMIDE 100 MG/10 ML VIAL IV SCH ×2 (08:58→15:47)
[2019-04-05] MEDS ORDERED: GLUCAGON 1 MG VIAL IM PRN (10:28)
[2019-04-05] MEDS ORDERED: DEXTROSE 10% 250 ML BAG IV PRN (10:28)
[2019-04-05] MEDS: INSULIN REGULAR 100 UNIT/ML SUBCUT SCH ×3 (11:56→21:09)
[2019-04-05] MEDS: ENOXAPARIN 40 MG/0.4 ML SYRINGE SUBCUT SCH ×2 (11:57→12:05)
[2019-04-05] MEDS: MENTHOL/ZINC OXIDE OINT 71 GM JAR TOP SCH ×2 (15:47→22:11)
[2019-04-06] MEDS: ALBUTEROL/IPRATROPIUM 3 ML NEB RESP TX SCH ×4 (01:22→19:09)
[2019-04-06] MEDS: MORPHINE 4 MG/1 ML VIAL IV PRN ×2 (05:39→15:20)
[2019-04-06] MEDS: SACUBITRIL/VALSARTAN 49-51 MG TABLET PO SCH ×2 (09:36→21:03)
[2019-04-06] MEDS: METOPROLOL SUCCINATE XL 25 MG TABLET PO SCH ×2 (09:36→21:03)
[2019-04-06] MEDS: ASPIRIN EC 81 MG TABLET PO SCH (09:36)
[2019-04-06] MEDS: SPIRONOLACTONE 25 MG TABLET PO SCH (09:37)
[2019-04-06] MEDS: FUROSEMIDE 100 MG/10 ML VIAL IV SCH ×2 (09:37→16:18)
[2019-04-06] MEDS: INSULIN REGULAR 100 UNIT/ML SUBCUT SCH ×4 (09:37→21:03)
[2019-04-06] MEDS: MENTHOL/ZINC OXIDE OINT 71 GM JAR TOP SCH ×2 (09:38→21:03)
[2019-04-06] MEDS: POLYETHYLENE GLYCOL POWDER 17 GM PACK PO SCH (09:38)
[2019-04-06 10:05] LABS: Basophils # 0.1 10*3/uL (0.0-0.2); Basophils % 1.1 % (0.0-0.8); Eosinophils # 0.2 10*3/uL (0.0-0.87); Eosinophils % 3.6 % (0.00-10.9); Hematocrit 38.9 VOL% (42.0-52.0); Hemoglobin 11.7 GM/DL (14.0-18.0); Immature Granulocytes % 0.6 %; Immature Granulocytes Absolute 0.03 #; Lymphocytes # 0.7 10*3/uL (1.4-4.0); Lymphocytes % 13.3 % (21.2-54.2); Mean Corpuscular HGB Conc 30.1 GM/DL (32-36); Mean Corpuscular Volume 92.8 FL (87-102); Mean Platelet Volume 9.4 FL (9.6-12.0); Neutrophils % 64.4 % (38.7-73.9); Platelet Count 228 T/CUMM (130-400); Red Blood Count 4.19 MC/CUMM (3.8-5.5); Red Cell Distribution Width 17.7 % (9.3-17.3); White Blood Count 5.3 T/CUMM (4-12)
[2019-04-06 10:22] LABS: Calcium 7.6 MG/DL (8.5-10.1); Osmolality,Calculated 282.4 MOS/KG (273-304)
[2019-04-06 10:24] LABS: Eosinophils 4 % (0-10); Hypochromasia 1+; Lymphocytes 16 % (20-55); Platelet Estimate Adequate; Segmented Neutrophils 70 % (50-85); Total Cells Counted 100
[2019-04-06] MEDS: ENOXAPARIN 40 MG/0.4 ML SYRINGE SUBCUT SCH (11:38)
[2019-04-06] MEDS: ACETAMINOPHEN 325 MG TABLET PO PRN (23:50)
[2019-04-07] MEDS: ALBUTEROL/IPRATROPIUM 3 ML NEB RESP TX SCH ×4 (00:12→20:08)
[2019-04-07] MEDS: ASPIRIN EC 81 MG TABLET PO SCH (08:48)
[2019-04-07] MEDS: POLYETHYLENE GLYCOL POWDER 17 GM PACK PO SCH (08:48)
[2019-04-07] MEDS: INSULIN REGULAR 100 UNIT/ML SUBCUT SCH ×4 (08:49→21:11)
[2019-04-07] MEDS: SACUBITRIL/VALSARTAN 49-51 MG TABLET PO SCH (08:50)
[2019-04-07] MEDS: METOPROLOL SUCCINATE XL 25 MG TABLET PO SCH (08:50)
[2019-04-07] MEDS: FUROSEMIDE 100 MG/10 ML VIAL IV SCH ×2 (08:50→15:48)
[2019-04-07 10:29] LABS: Basophils % 0.9 % (0.0-0.8); Immature Granulocytes % 0.4 %; Immature Granulocytes Absolute 0.02 #
[2019-04-07 10:45] LABS: Calcium 8.1 MG/DL (8.5-10.1); Osmolality,Calculated 273.2 MOS/KG (273-304)
[2019-04-07 10:54] LABS: Eosinophils # 0.2 10*3/uL (0.0-0.87); Eosinophils % 3.8 % (0.00-10.9); Hematocrit 40.9 VOL% (42.0-52.0); Hemoglobin 12.2 GM/DL (14.0-18.0); Lymphocytes # 0.7 10*3/uL (1.4-4.0); Lymphocytes % 15.5 % (21.2-54.2); Mean Corpuscular HGB Conc 29.8 GM/DL (32-36); Mean Corpuscular Volume 92.5 FL (87-102); Mean Platelet Volume 9.3 FL (9.6-12.0); Monocytes % 16.1 % (1.7-12.7); Neutrophils % 63.3 % (38.7-73.9); Platelet Count 225 T/CUMM (130-400); Red Blood Count 4.42 MC/CUMM (3.8-5.5); Red Cell Distribution Width 17.6 % (9.3-17.3); White Blood Count 4.5 T/CUMM (4-12)
[2019-04-07 11:05] LABS: Band Neutrophils 1 % (0-10); Eosinophils 1 % (0-10); Hypochromasia 1+; Lymphocytes 12 % (20-55); Platelet Estimate Adequate; Segmented Neutrophils 70 % (50-85); Total Cells Counted 100
[2019-04-07] MEDS: MENTHOL/ZINC OXIDE OINT 71 GM JAR TOP SCH ×2 (12:26→21:10)
[2019-04-07] MEDS: ENOXAPARIN 40 MG/0.4 ML SYRINGE SUBCUT SCH (12:45)
[2019-04-07] MEDS ORDERED: FUROSEMIDE 40 MG/4 ML VIAL IV SCH (16:00)
[2019-04-07] MEDS ORDERED: METOPROLOL SUCCINATE XL 25 MG TABLET PO SCH (21:00)
[2019-04-08] MEDS: ALBUTEROL/IPRATROPIUM 3 ML NEB RESP TX SCH ×4 (01:10→19:01)
[2019-04-08] MEDS: ACETAMINOPHEN 325 MG TABLET PO PRN (02:46)
[2019-04-08 04:32] LABS: Calcium 7.8 MG/DL (8.5-10.1); Osmolality,Calculated 285.4 MOS/KG (273-304)
[2019-04-08 04:36] LABS: Basophils % 0.9 % (0.0-0.8); Eosinophils # 0.1 10*3/uL (0.0-0.87); Eosinophils % 2.6 % (0.00-10.9); Hematocrit 36.9 VOL% (42.0-52.0); Hemoglobin 11.5 GM/DL (14.0-18.0); Immature Granulocytes % 0.2 %; Immature Granulocytes Absolute 0.01 #; Lymphocytes # 0.8 10*3/uL (1.4-4.0); Lymphocytes % 17.6 % (21.2-54.2); Mean Corpuscular HGB Conc 31.2 GM/DL (32-36); Mean Corpuscular Volume 89.6 FL (87-102); Mean Platelet Volume 10.1 FL (9.6-12.0); Monocytes % 18.4 % (1.7-12.7); Neutrophils % 60.3 % (38.7-73.9); Platelet Count 236 T/CUMM (130-400); Red Blood Count 4.12 MC/CUMM (3.8-5.5); Red Cell Distribution Width 17.5 % (9.3-17.3); White Blood Count 4.3 T/CUMM (4-12)
[2019-04-08 05:23] LABS: Band Neutrophils 2 % (0-10); Eosinophils 2 % (0-10); Lymphocytes 20 % (20-55); Segmented Neutrophils 64 % (50-85); Total Cells Counted 100
[2019-04-08 05:24] LABS: Anisocytosis 1+; Hypochromasia 1+; Microcytosis 1+; Platelet Estimate Normal
[2019-04-08] MEDS: INSULIN REGULAR 100 UNIT/ML SUBCUT SCH ×4 (07:45→20:21)
[2019-04-08] MEDS: POLYETHYLENE GLYCOL POWDER 17 GM PACK PO SCH (09:18)
[2019-04-08] MEDS: FUROSEMIDE 40 MG/4 ML VIAL IV SCH ×2 (09:19→15:51)
[2019-04-08] MEDS: ASPIRIN EC 81 MG TABLET PO SCH (09:19)
[2019-04-08] MEDS: METOPROLOL SUCCINATE XL 25 MG TABLET PO SCH (09:19)
[2019-04-08] MEDS: MENTHOL/ZINC OXIDE OINT 71 GM JAR TOP SCH (09:20)
[2019-04-08] MEDS: MORPHINE 4 MG/1 ML VIAL IV PRN (10:05)
[2019-04-08] MEDS: ENOXAPARIN 40 MG/0.4 ML SYRINGE SUBCUT SCH (10:08)
[2019-04-08] MEDS ORDERED: KETOROLAC 15 MG/1 ML VIAL IV PRN (10:43)
[2019-04-08] MEDS ORDERED: LIDOCAINE 2% TOP JELLY 5 ML TUBE TOP ONE (15:37)
[2019-04-08] MEDS: SACUBITRIL/VALSARTAN 49-51 MG TABLET PO SCH (15:50)
[2019-04-08] MEDS: SILVER SULFADIAZINE 1% CREAM 25 GM TUBE TOP SCH (20:22)
[2019-04-08] MEDS: diphenhydrAMINE CAP 25 MG CAPSULE PO PRN (20:22)
[2019-04-09] MEDS: ALBUTEROL/IPRATROPIUM 3 ML NEB RESP TX SCH ×4 (01:05→19:17)
[2019-04-09 05:50] LABS: Basophils % 0.8 % (0.0-0.8); Eosinophils # 0.1 10*3/uL (0.0-0.87); Eosinophils % 3.4 % (0.00-10.9); Hematocrit 37.1 VOL% (42.0-52.0); Hemoglobin 11.5 GM/DL (14.0-18.0); Immature Granulocytes % 0.3 %; Immature Granulocytes Absolute 0.01 #; Lymphocytes # 0.6 10*3/uL (1.4-4.0); Lymphocytes % 17.8 % (21.2-54.2); Mean Corpuscular Volume 89.4 FL (87-102); Mean Platelet Volume 9.9 FL (9.6-12.0); Monocytes % 20.9 % (1.7-12.7); Neutrophils % 56.8 % (38.7-73.9); Platelet Count 214 T/CUMM (130-400); Red Blood Count 4.15 MC/CUMM (3.8-5.5); Red Cell Distribution Width 17.4 % (9.3-17.3); White Blood Count 3.5 T/CUMM (4-12)
[2019-04-09 06:05] LABS: Calcium 8.2 MG/DL (8.5-10.1); Osmolality,Calculated 276.1 MOS/KG (273-304)
[2019-04-09 06:20] LABS: Eosinophils 2 % (0-10); Hypochromasia 1+; Lymphocytes 12 % (20-55); Microcytosis 1+; Platelet Estimate Adequate; Segmented Neutrophils 69 % (50-85); Total Cells Counted 100
[2019-04-09] MEDS: POLYETHYLENE GLYCOL POWDER 17 GM PACK PO SCH (08:42)
[2019-04-09] MEDS: ASPIRIN EC 81 MG TABLET PO SCH (08:43)
[2019-04-09] MEDS: SACUBITRIL/VALSARTAN 49-51 MG TABLET PO SCH (08:43)
[2019-04-09] MEDS: METOPROLOL SUCCINATE XL 25 MG TABLET PO SCH (08:43)
[2019-04-09] MEDS: FUROSEMIDE 40 MG/4 ML VIAL IV SCH ×2 (08:49→15:25)
[2019-04-09] MEDS: INSULIN REGULAR 100 UNIT/ML SUBCUT SCH ×4 (08:55→21:47)
[2019-04-09] MEDS: SILVER SULFADIAZINE 1% CREAM 25 GM TUBE TOP SCH ×2 (08:58→21:47)
[2019-04-09] MEDS: LIDOCAINE 2% TOP JELLY 5 ML TUBE TOP SCH (09:32)
[2019-04-09] MEDS: ENOXAPARIN 40 MG/0.4 ML SYRINGE SUBCUT SCH ×2 (13:43→13:51)
[2019-04-09] MEDS: diphenhydrAMINE CAP 25 MG CAPSULE PO PRN (23:22)
[2019-04-09] MEDS: ACETAMINOPHEN 325 MG TABLET PO PRN (23:22)
[2019-04-10] MEDS: ALBUTEROL/IPRATROPIUM 3 ML NEB RESP TX SCH ×4 (00:44→20:12)
[2019-04-10 05:59] LABS: Basophils % 0.9 % (0.0-0.8); Eosinophils # 0.1 10*3/uL (0.0-0.87); Eosinophils % 2.8 % (0.00-10.9); Hematocrit 36.1 VOL% (42.0-52.0); Hemoglobin 11.2 GM/DL (14.0-18.0); Immature Granulocytes % 0.5 %; Immature Granulocytes Absolute 0.02 #; Lymphocytes # 0.8 10*3/uL (1.4-4.0); Mean Corpuscular Volume 89.6 FL (87-102); Mean Platelet Volume 9.7 FL (9.6-12.0); Monocytes % 22.3 % (1.7-12.7); Neutrophils % 55.5 % (38.7-73.9); Platelet Count 209 T/CUMM (130-400); Red Blood Count 4.03 MC/CUMM (3.8-5.5); Red Cell Distribution Width 17.2 % (9.3-17.3); White Blood Count 4.2 T/CUMM (4-12)
[2019-04-10 06:23] LABS: Eosinophils 2 % (0-10); Hypochromasia 1+; Lymphocytes 18 % (20-55); Microcytosis 1+; Platelet Estimate Adequate; Segmented Neutrophils 55 % (50-85); Total Cells Counted 100
[2019-04-10 06:28] LABS: Calcium 7.8 MG/DL (8.5-10.1); Osmolality,Calculated 288.1 MOS/KG (273-304)
[2019-04-10] MEDS: INSULIN REGULAR 100 UNIT/ML SUBCUT SCH ×3 (09:32→17:11)
[2019-04-10] MEDS: SACUBITRIL/VALSARTAN 49-51 MG TABLET PO SCH (09:33)
[2019-04-10] MEDS: FUROSEMIDE 40 MG/4 ML VIAL IV SCH ×2 (09:34→15:03)
[2019-04-10] MEDS: METOPROLOL SUCCINATE XL 25 MG TABLET PO SCH (09:34)
[2019-04-10] MEDS: POLYETHYLENE GLYCOL POWDER 17 GM PACK PO SCH (09:34)
[2019-04-10] MEDS: ASPIRIN EC 81 MG TABLET PO SCH (09:34)
[2019-04-10] MEDS: LIDOCAINE 2% TOP JELLY 5 ML TUBE TOP SCH (09:36)
[2019-04-10] MEDS: SILVER SULFADIAZINE 1% CREAM 25 GM TUBE TOP SCH ×2 (10:25→21:55)
[2019-04-10] MEDS: ENOXAPARIN 40 MG/0.4 ML SYRINGE SUBCUT SCH (12:39)
[2019-04-10] MEDS ORDERED: FUROSEMIDE 100 MG/10 ML VIAL ONE (14:56)
[2019-04-10] MEDS: diphenhydrAMINE CAP 25 MG CAPSULE PO PRN ×2 (15:04→22:58)
[2019-04-11] MEDS: INSULIN REGULAR 100 UNIT/ML SUBCUT SCH ×5 (00:18→22:08)
[2019-04-11] MEDS: ALBUTEROL/IPRATROPIUM 3 ML NEB RESP TX SCH ×4 (00:44→19:37)
[2019-04-11 06:04] LABS: Basophils # 0.1 10*3/uL (0.0-0.2); Basophils % 1.3 % (0.0-0.8); Eosinophils # 0.1 10*3/uL (0.0-0.87); Eosinophils % 2.6 % (0.00-10.9); Hematocrit 37.6 VOL% (42.0-52.0); Hemoglobin 11.4 GM/DL (14.0-18.0); Immature Granulocytes % 0.6 %; Immature Granulocytes Absolute 0.03 #; Lymphocytes # 0.8 10*3/uL (1.4-4.0); Lymphocytes % 16.5 % (21.2-54.2); Mean Corpuscular HGB Conc 30.3 GM/DL (32-36); Mean Platelet Volume 9.7 FL (9.6-12.0); Monocytes % 20.3 % (1.7-12.7); Neutrophils % 58.7 % (38.7-73.9); Platelet Count 210 T/CUMM (130-400); Red Blood Count 4.13 MC/CUMM (3.8-5.5); Red Cell Distribution Width 17.2 % (9.3-17.3); White Blood Count 4.7 T/CUMM (4-12)
[2019-04-11 06:34] LABS: Eosinophils 3 % (0-10); Hypochromasia 1+; Lymphocytes 18 % (20-55); Platelet Estimate Adequate; Segmented Neutrophils 61 % (50-85); Total Cells Counted 100
[2019-04-11 06:35] LABS: Microcytosis 1+
[2019-04-11 06:38] LABS: Osmolality,Calculated 282.4 MOS/KG (273-304)
[2019-04-11] MEDS: METOPROLOL SUCCINATE XL 25 MG TABLET PO SCH (09:20)
[2019-04-11] MEDS: SACUBITRIL/VALSARTAN 49-51 MG TABLET PO SCH (09:20)
[2019-04-11] MEDS: ASPIRIN EC 81 MG TABLET PO SCH (09:21)
[2019-04-11] MEDS: FUROSEMIDE 40 MG/4 ML VIAL IV SCH ×2 (09:21→16:23)
[2019-04-11] MEDS: POLYETHYLENE GLYCOL POWDER 17 GM PACK PO SCH (09:25)
[2019-04-11] MEDS: SILVER SULFADIAZINE 1% CREAM 25 GM TUBE TOP SCH ×2 (09:27→22:08)
[2019-04-11] MEDS: LIDOCAINE 2% TOP JELLY 5 ML TUBE TOP SCH (11:15)
[2019-04-11] MEDS: ENOXAPARIN 40 MG/0.4 ML SYRINGE SUBCUT SCH (11:16)
[2019-04-11] MEDS: diphenhydrAMINE CAP 25 MG CAPSULE PO PRN (23:23)
[2019-04-11] MEDS: ACETAMINOPHEN 325 MG TABLET PO PRN (23:24)
[2019-04-12] MEDS: ALBUTEROL/IPRATROPIUM 3 ML NEB RESP TX SCH ×3 (00:28→13:15)
[2019-04-12 05:40] LABS: Basophils % 0.6 % (0.0-0.8); Eosinophils # 0.1 10*3/uL (0.0-0.87); Eosinophils % 2.6 % (0.00-10.9); Hemoglobin 12.3 GM/DL (14.0-18.0); Immature Granulocytes % 0.2 %; Immature Granulocytes Absolute 0.01 #; Lymphocytes % 20.8 % (21.2-54.2); Mean Corpuscular HGB Conc 30.8 GM/DL (32-36); Mean Corpuscular Volume 90.1 FL (87-102); Mean Platelet Volume 10.3 FL (9.6-12.0); Monocytes % 18.2 % (1.7-12.7); Neutrophils % 57.6 % (38.7-73.9); Platelet Count 222 T/CUMM (130-400); Red Blood Count 4.44 MC/CUMM (3.8-5.5); Red Cell Distribution Width 17.2 % (9.3-17.3); White Blood Count 4.7 T/CUMM (4-12)
[2019-04-12 06:01] LABS: Eosinophils 3 % (0-10); Hypochromasia 1+; Lymphocytes 23 % (20-55); Microcytosis 1+; Platelet Estimate Adequate; Segmented Neutrophils 56 % (50-85); Total Cells Counted 100
[2019-04-12 06:06] LABS: Calcium 8.5 MG/DL (8.5-10.1); Osmolality,Calculated 273.2 MOS/KG (273-304)
[2019-04-12] MEDS: METOPROLOL SUCCINATE XL 25 MG TABLET PO SCH (09:08)
[2019-04-12] MEDS: SACUBITRIL/VALSARTAN 49-51 MG TABLET PO SCH (09:08)
[2019-04-12] MEDS: ASPIRIN EC 81 MG TABLET PO SCH (09:08)
[2019-04-12] MEDS: FUROSEMIDE 40 MG/4 ML VIAL IV SCH (09:09)
[2019-04-12] MEDS: POLYETHYLENE GLYCOL POWDER 17 GM PACK PO SCH (09:12)
[2019-04-12] MEDS: LIDOCAINE 2% TOP JELLY 5 ML TUBE TOP SCH (09:13)
[2019-04-12] MEDS: SILVER SULFADIAZINE 1% CREAM 25 GM TUBE TOP SCH (09:13)
[2019-04-12] MEDS: INSULIN REGULAR 100 UNIT/ML SUBCUT SCH ×2 (09:13→12:51)
[2019-04-12] MEDS: ENOXAPARIN 40 MG/0.4 ML SYRINGE SUBCUT SCH (12:15)
[2019-04-12 12:47] VITALS: BP 111/69
== END 2019-04-12 15:11 | disposition home or self-care (01) | DRG 194 ==
LOC: EDBD → EDUNIT# → N.EDINP 03:39 → N.ED 03:39 → N.2W 07:01 → SUATTDRO 04-05 08:32 → N.TELES 04-05 14:54 → N.TELEN 04-09 11:20
PROVIDERS: ADMIT Internal Medicine; ATTEND Internal Medicine

== ENCOUNTER 2020-01-06 19:04 | Inpatient (IN) ==
[2020-01-06 19:53] LABS: Basophils % 0.9 % (0.0-0.8); Eosinophils # 0.2 10*3/uL (0.0-0.87); Eosinophils % 3.8 % (0.00-10.9); Hematocrit 40.2 VOL% (42.0-52.0); Immature Granulocytes % 0.2 %; Immature Granulocytes Absolute 0.01 #; Lymphocytes # 1.2 10*3/uL (1.4-4.0); Lymphocytes % 26.1 % (21.2-54.2); Mean Corpuscular HGB Conc 29.9 GM/DL (32-36); Mean Corpuscular Volume 91.8 FL (87-102); Mean Platelet Volume 9.8 FL (9.6-12.0); Monocytes % 16.2 % (1.7-12.7); Neutrophils % 52.8 % (38.7-73.9); Platelet Count 226 T/CUMM (130-400); Red Blood Count 4.38 MC/CUMM (3.8-5.5); Red Cell Distribution Width 19.1 % (9.3-17.3); White Blood Count 4.4 T/CUMM (4-12)
[2020-01-06 19:58] LABS: Albumin 3.2 G/DL (3.4-5.0); Bilirubin,Total 1.1 MG/DL (0.2-1.0); Calcium 8.6 MG/DL (8.5-10.1); Osmolality,Calculated 278.4 MOS/KG (273-304); Total Protein 8.4 G/DL (6.4-8.3)
[2020-01-06 20:00] LABS: INR 1.2; PT Patient Result 12.6 SECS (9.8-11.9); Partial Thromboplastin Time 29.5 SECS (23.9-33.8)
[2020-01-06] MEDS ORDERED: FUROSEMIDE 40 MG/4 ML VIAL IV STA (20:11)
[2020-01-06] MEDS ORDERED: SODIUM CHLORIDE 0.9% 500 ML IV STA (20:12)
[2020-01-06] MEDS ORDERED: METOPROLOL TARTRATE 5 MG/5 ML VIAL IV STA (20:13)
[2020-01-06 20:46] LABS: Eosinophils 7 % (0-10); Lymphocytes 21 % (20-55); Segmented Neutrophils 59 % (50-85); Total Cells Counted 100
[2020-01-06 20:47] LABS: Hypochromasia 2+; Platelet Estimate Normal
[2020-01-06] MEDS ORDERED: MAGNESIUM SULF RIDER 4 GM in PREMIX 1 EACH IV PRN (21:10)
[2020-01-06] MEDS ORDERED: MAGNESIUM SULF RIDER 2 GM in PREMIX 1 EACH IV PRN (21:10)
[2020-01-06] MEDS ORDERED: POTASSIUM CHLORIDE 20 MEQ TABLET PO PRN (21:10)
[2020-01-06] MEDS ORDERED: MORPHINE 4 MG/1 ML VIAL IV PRN (23:00)
[2020-01-06] MEDS ORDERED: DOCUSATE SODIUM 100 MG CAPSULE PO PRN (23:00)
[2020-01-06] MEDS ORDERED: ONDANSETRON 4 MG/2 ML VIAL IV PRN (23:00)
[2020-01-06] MEDS ORDERED: GLUCAGON 1 MG VIAL IM PRN (23:00)
[2020-01-06] MEDS ORDERED: DEXTROSE 50% 25 GM/50 ML VIAL IV PRN (23:00)
[2020-01-07] MEDS: ENOXAPARIN 40 MG/0.4 ML SYRINGE SUBCUT SCH ×2 (00:47→23:05)
[2020-01-07 02:56] LABS: Basophils % 0.9 % (0.0-0.8); Eosinophils # 0.3 10*3/uL (0.0-0.87); Eosinophils % 5.6 % (0.00-10.9); Hematocrit 37.4 VOL% (42.0-52.0); Hemoglobin 11.3 GM/DL (14.0-18.0); Immature Granulocytes % 0.2 %; Immature Granulocytes Absolute 0.01 #; Lymphocytes # 0.9 10*3/uL (1.4-4.0); Lymphocytes % 20.9 % (21.2-54.2); Mean Corpuscular HGB Conc 30.2 GM/DL (32-36); Mean Corpuscular Volume 90.1 FL (87-102); Mean Platelet Volume 10.1 FL (9.6-12.0); Monocytes % 16.2 % (1.7-12.7); Neutrophils % 56.2 % (38.7-73.9); Platelet Count 215 T/CUMM (130-400); Red Blood Count 4.15 MC/CUMM (3.8-5.5); White Blood Count 4.5 T/CUMM (4-12)
[2020-01-07 03:09] LABS: Bilirubin,Total 1.1 MG/DL (0.2-1.0); Calcium 8.7 MG/DL (8.5-10.1); Osmolality,Calculated 278.4 MOS/KG (273-304); Risk Ratio 2.44; Thyroid Stimulating Hormone 1.97 uIU/ml (0.358-3.74); Total Protein 8.1 G/DL (6.4-8.3); VLDL CHOLESTEROL 8.4 MG/DL
[2020-01-07] MEDS: METOPROLOL TARTRATE 25 MG TABLET PO SCH ×3 (04:16→21:42)
[2020-01-07 04:20] LABS: Anisocytosis 1+; Band Neutrophils 3 % (0-10); Eosinophils 7 % (0-10); Hypochromasia 2+; Lymphocytes 22 % (20-55); Segmented Neutrophils 50 % (50-85); Target Cells 1+; Total Cells Counted 100
[2020-01-07 04:21] LABS: Macrocytosis 1+; Microcytosis Slight; Platelet Estimate Normal
[2020-01-07] MEDS: INSULIN LISPRO 100 UNIT/ML SUBCUT SCH ×4 (07:50→21:42)
[2020-01-07] MEDS ORDERED: METOPROLOL TARTRATE 25 MG TABLET PO SCH (09:00)
[2020-01-07] MEDS: ASPIRIN EC 81 MG TABLET PO SCH (09:10)
[2020-01-07] MEDS: POTASSIUM CHLORIDE 8 MEQ CAPSULE PO SCH (09:10)
[2020-01-07] MEDS: FUROSEMIDE 100 MG/10 ML VIAL IV SCH ×2 (09:15→16:56)
[2020-01-07] MEDS: SACUBITRIL/VALSARTAN 49-51 MG TABLET PO SCH (09:16)
[2020-01-07 15:26] LABS: Barbiturates Screen,Urine Negative (Negative); Benzodiazepines Screen,Urine Negative (Negative); Cannabinoid Screen,Urine Negative (Negative); Opiate Screen,Urine Negative (Negative); Phencyclidine Screen,Urine Negative (Negative)
[2020-01-08] MEDS: ACETAMINOPHEN 325 MG TABLET PO PRN (00:10)
[2020-01-08 06:21] LABS: Basophils % 0.8 % (0.0-0.8); Eosinophils # 0.2 10*3/uL (0.0-0.87); Eosinophils % 3.6 % (0.00-10.9); Hematocrit 34.5 VOL% (42.0-52.0); Hemoglobin 10.8 GM/DL (14.0-18.0); Immature Granulocytes % 0.2 %; Immature Granulocytes Absolute 0.01 #; Lymphocytes # 0.8 10*3/uL (1.4-4.0); Lymphocytes % 17.3 % (21.2-54.2); Mean Corpuscular HGB Conc 31.3 GM/DL (32-36); Mean Corpuscular Volume 87.8 FL (87-102); Mean Platelet Volume 9.9 FL (9.6-12.0); Monocytes % 17.3 % (1.7-12.7); Neutrophils % 60.8 % (38.7-73.9); Platelet Count 207 T/CUMM (130-400); Red Blood Count 3.93 MC/CUMM (3.8-5.5); Red Cell Distribution Width 18.6 % (9.3-17.3); White Blood Count 4.7 T/CUMM (4-12)
[2020-01-08 06:47] LABS: Albumin 2.9 G/DL (3.4-5.0); Calcium 8.4 MG/DL (8.5-10.1); Osmolality,Calculated 272.2 MOS/KG (273-304); Total Protein 7.8 G/DL (6.4-8.3)
[2020-01-08] MEDS: INSULIN LISPRO 100 UNIT/ML SUBCUT SCH ×4 (08:40→20:41)
[2020-01-08] MEDS: SACUBITRIL/VALSARTAN 49-51 MG TABLET PO SCH (08:43)
[2020-01-08] MEDS: FUROSEMIDE 100 MG/10 ML VIAL IV SCH (08:46)
[2020-01-08] MEDS: POTASSIUM CHLORIDE 8 MEQ CAPSULE PO SCH (08:46)
[2020-01-08] MEDS: METOPROLOL TARTRATE 25 MG TABLET PO SCH (08:46)
[2020-01-08] MEDS: ASPIRIN EC 81 MG TABLET PO SCH (08:46)
[2020-01-08] MEDS: carvediloL 3.125 MG TABLET PO SCH ×2 (09:33→17:32)
[2020-01-08 13:02] LABS: Eosinophils 2 % (0-10); Lymphocytes 15 % (20-55); Segmented Neutrophils 71 % (50-85); Total Cells Counted 100
[2020-01-08 13:03] LABS: Platelet Estimate Adequate
[2020-01-08] MEDS: FUROSEMIDE 40 MG/4 ML VIAL IV SCH (17:30)
[2020-01-09] MEDS: ENOXAPARIN 40 MG/0.4 ML SYRINGE SUBCUT SCH ×2 (00:10→22:09)
[2020-01-09 06:16] LABS: Basophils % 0.7 % (0.0-0.8); Eosinophils # 0.2 10*3/uL (0.0-0.87); Eosinophils % 3.9 % (0.00-10.9); Hematocrit 35.4 VOL% (42.0-52.0); Immature Granulocytes % 0.2 %; Immature Granulocytes Absolute 0.01 #; Lymphocytes # 0.9 10*3/uL (1.4-4.0); Lymphocytes % 21.5 % (21.2-54.2); Mean Corpuscular HGB Conc 31.1 GM/DL (32-36); Mean Corpuscular Volume 88.5 FL (87-102); Mean Platelet Volume 10.2 FL (9.6-12.0); Monocytes % 19.8 % (1.7-12.7); Neutrophils % 53.9 % (38.7-73.9); Platelet Count 194 T/CUMM (130-400); Red Cell Distribution Width 18.4 % (9.3-17.3); White Blood Count 4.1 T/CUMM (4-12)
[2020-01-09 06:34] LABS: Calcium 8.5 MG/DL (8.5-10.1)
[2020-01-09 06:39] LABS: Eosinophils 7 % (0-10); Lymphocytes 14 % (20-55); Platelet Estimate Adequate; Segmented Neutrophils 66 % (50-85); Total Cells Counted 100
[2020-01-09 06:40] LABS: Hypochromasia 1+; Microcytosis Slight
[2020-01-09] MEDS: INSULIN LISPRO 100 UNIT/ML SUBCUT SCH ×4 (07:45→22:10)
[2020-01-09] MEDS: SACUBITRIL/VALSARTAN 49-51 MG TABLET PO SCH (09:37)
[2020-01-09] MEDS: FUROSEMIDE 40 MG/4 ML VIAL IV SCH ×2 (09:37→16:32)
[2020-01-09] MEDS: POTASSIUM CHLORIDE 8 MEQ CAPSULE PO SCH (09:37)
[2020-01-09] MEDS: ASPIRIN EC 81 MG TABLET PO SCH (09:37)
[2020-01-09] MEDS: carvediloL 3.125 MG TABLET PO SCH (09:37)
[2020-01-09] MEDS ORDERED: MAGNESIUM HYDROXIDE SUSP 30 ML UDCUP PO ONE (16:36)
[2020-01-09] MEDS: POLYETHYLENE GLYCOL POWDER 17 GM PACK PO SCH (22:07)
[2020-01-09] MEDS: LACTULOSE 20 GM/30 ML UDCUP PO SCH (22:08)
[2020-01-09] MEDS: DOCUSATE SODIUM 100 MG CAPSULE PO SCH (22:09)
[2020-01-09] MEDS: SENNA 8.6 MG TABLET PO SCH (22:10)
[2020-01-10 05:53] LABS: Basophils % 0.9 % (0.0-0.8); Eosinophils # 0.2 10*3/uL (0.0-0.87); Eosinophils % 4.4 % (0.00-10.9); Hematocrit 34.1 VOL% (42.0-52.0); Hemoglobin 10.6 GM/DL (14.0-18.0); Immature Granulocytes % 0.2 %; Immature Granulocytes Absolute 0.01 #; Lymphocytes # 0.8 10*3/uL (1.4-4.0); Lymphocytes % 17.1 % (21.2-54.2); Mean Corpuscular HGB Conc 31.1 GM/DL (32-36); Mean Corpuscular Volume 88.3 FL (87-102); Mean Platelet Volume 10.4 FL (9.6-12.0); Monocytes % 18.4 % (1.7-12.7); Platelet Count 198 T/CUMM (130-400); Red Blood Count 3.86 MC/CUMM (3.8-5.5); Red Cell Distribution Width 18.7 % (9.3-17.3); White Blood Count 4.5 T/CUMM (4-12)
[2020-01-10 06:14] LABS: Calcium 8.1 MG/DL (8.5-10.1); Osmolality,Calculated 283.7 MOS/KG (273-304)
[2020-01-10 06:21] LABS: Eosinophils 3 % (0-10); Hypochromasia 1+; Lymphocytes 17 % (20-55); Microcytosis Slight; Platelet Estimate Adequate; Segmented Neutrophils 68 % (50-85); Total Cells Counted 100
[2020-01-10] MEDS: INSULIN LISPRO 100 UNIT/ML SUBCUT SCH ×4 (07:46→21:00)
[2020-01-10] MEDS: FUROSEMIDE 40 MG/4 ML VIAL IV SCH ×2 (09:36→16:34)
[2020-01-10] MEDS: ASPIRIN EC 81 MG TABLET PO SCH (09:36)
[2020-01-10] MEDS: POTASSIUM CHLORIDE 8 MEQ CAPSULE PO SCH (09:36)
[2020-01-10] MEDS: METOPROLOL SUCCINATE XL 25 MG TABLET PO SCH (09:36)
[2020-01-10] MEDS: POLYETHYLENE GLYCOL POWDER 17 GM PACK PO SCH ×2 (09:40→21:01)
[2020-01-10] MEDS: DOCUSATE SODIUM 100 MG CAPSULE PO SCH ×2 (09:40→21:00)
[2020-01-10] MEDS: LACTULOSE 20 GM/30 ML UDCUP PO SCH ×2 (09:40→21:00)
[2020-01-10] MEDS: hydrALAZINE 10 MG TABLET PO SCH (21:00)
[2020-01-10] MEDS: SENNA 8.6 MG TABLET PO SCH (21:01)
[2020-01-10] MEDS: ISOSORBIDE DINITRATE 20 MG TABLET PO SCH (21:01)
[2020-01-10] MEDS: ENOXAPARIN 40 MG/0.4 ML SYRINGE SUBCUT SCH (22:04)
[2020-01-11 06:25] LABS: Basophils % 0.7 % (0.0-0.8); Eosinophils # 0.2 10*3/uL (0.0-0.87); Eosinophils % 4.2 % (0.00-10.9); Hematocrit 36.4 VOL% (42.0-52.0); Hemoglobin 11.1 GM/DL (14.0-18.0); Immature Granulocytes % 0.2 %; Immature Granulocytes Absolute 0.01 #; Lymphocytes % 24.2 % (21.2-54.2); Mean Corpuscular HGB Conc 30.5 GM/DL (32-36); Mean Corpuscular Volume 89.4 FL (87-102); Mean Platelet Volume 10.7 FL (9.6-12.0); Monocytes % 20.9 % (1.7-12.7); Neutrophils % 49.8 % (38.7-73.9); Platelet Count 219 T/CUMM (130-400); Red Blood Count 4.07 MC/CUMM (3.8-5.5); Red Cell Distribution Width 18.6 % (9.3-17.3); White Blood Count 4.3 T/CUMM (4-12)
[2020-01-11 06:46] LABS: Eosinophils 2 % (0-10); Hypochromasia 1+; Lymphocytes 20 % (20-55); Microcytosis 1+; Platelet Estimate Adequate; Segmented Neutrophils 52 % (50-85); Total Cells Counted 100
[2020-01-11 06:47] LABS: Ovalocytes Slight
[2020-01-11 06:52] LABS: Calcium 8.4 MG/DL (8.5-10.1); Osmolality,Calculated 279.8 MOS/KG (273-304)
[2020-01-11] MEDS: INSULIN LISPRO 100 UNIT/ML SUBCUT SCH ×4 (09:58→20:57)
[2020-01-11] MEDS: FUROSEMIDE 40 MG/4 ML VIAL IV SCH ×2 (10:00→15:27)
[2020-01-11] MEDS: DOCUSATE SODIUM 100 MG CAPSULE PO SCH ×2 (10:00→20:57)
[2020-01-11] MEDS: ASPIRIN EC 81 MG TABLET PO SCH (10:00)
[2020-01-11] MEDS: POTASSIUM CHLORIDE 8 MEQ CAPSULE PO SCH (10:00)
[2020-01-11] MEDS: LACTULOSE 20 GM/30 ML UDCUP PO SCH ×2 (10:09→20:56)
[2020-01-11] MEDS: POLYETHYLENE GLYCOL POWDER 17 GM PACK PO SCH ×2 (10:09→20:57)
[2020-01-11] MEDS: ISOSORBIDE DINITRATE 20 MG TABLET PO SCH (10:10)
[2020-01-11] MEDS: METOPROLOL SUCCINATE XL 25 MG TABLET PO SCH (10:10)
[2020-01-11] MEDS: hydrALAZINE 10 MG TABLET PO SCH (10:10)
[2020-01-11] MEDS: ACETAMINOPHEN 325 MG TABLET PO PRN (15:44)
[2020-01-11] MEDS: SENNA 8.6 MG TABLET PO SCH (20:57)
[2020-01-11] MEDS: ENOXAPARIN 40 MG/0.4 ML SYRINGE SUBCUT SCH (23:25)
[2020-01-12 05:53] LABS: Basophils % 1.1 % (0.0-0.8); Eosinophils # 0.2 10*3/uL (0.0-0.87); Hematocrit 35.8 VOL% (42.0-52.0); Hemoglobin 11.2 GM/DL (14.0-18.0); Immature Granulocytes % 0.3 %; Immature Granulocytes Absolute 0.01 #; Lymphocytes % 26.1 % (21.2-54.2); Mean Corpuscular HGB Conc 31.3 GM/DL (32-36); Mean Corpuscular Volume 88.4 FL (87-102); Mean Platelet Volume 10.4 FL (9.6-12.0); Monocytes % 18.2 % (1.7-12.7); Neutrophils % 49.3 % (38.7-73.9); Platelet Count 209 T/CUMM (130-400); Red Blood Count 4.05 MC/CUMM (3.8-5.5); Red Cell Distribution Width 18.5 % (9.3-17.3); White Blood Count 3.8 T/CUMM (4-12)
[2020-01-12 06:14] LABS: Calcium 8.7 MG/DL (8.5-10.1); Osmolality,Calculated 276.1 MOS/KG (273-304)
[2020-01-12 06:16] LABS: Calcium 8.8 MG/DL (8.5-10.1)
[2020-01-12 06:24] LABS: Eosinophils 4 % (0-10); Hypochromasia Slight; Lymphocytes 26 % (20-55); Platelet Estimate Normal; Segmented Neutrophils 59 % (50-85); Target Cells Few; Total Cells Counted 100
[2020-01-12] MEDS: FUROSEMIDE 40 MG/4 ML VIAL IV SCH (09:42)
[2020-01-12] MEDS: POTASSIUM CHLORIDE 8 MEQ CAPSULE PO SCH (09:42)
[2020-01-12] MEDS: ASPIRIN EC 81 MG TABLET PO SCH (09:42)
[2020-01-12] MEDS: INSULIN LISPRO 100 UNIT/ML SUBCUT SCH ×2 (09:43→12:53)
[2020-01-12] MEDS: LACTULOSE 20 GM/30 ML UDCUP PO SCH (09:48)
[2020-01-12] MEDS: DOCUSATE SODIUM 100 MG CAPSULE PO SCH (09:48)
[2020-01-12] MEDS: POLYETHYLENE GLYCOL POWDER 17 GM PACK PO SCH (09:49)
[2020-01-12] MEDS: METOPROLOL SUCCINATE XL 25 MG TABLET PO SCH (09:49)
[2020-01-12 12:26] VITALS: BP 102/78
[2020-01-12] MEDS ORDERED: FUROSEMIDE 40 MG TABLET PO SCH (16:00)
== END 2020-01-12 14:47 | disposition home or self-care (01) | DRG 194 ==
LOC: N.EDINP 19:04 → N.ED 19:04 → SUATTDRO 21:03 → N.TELEN 23:21
PROVIDERS: ADMIT Family Medicine; ATTEND Hospitalist

== ENCOUNTER 2020-06-03 18:58 | Inpatient (IN) ==
[2020-06-03] MEDS ORDERED: ALBUTEROL/IPRATROPIUM 3 ML NEB RESP TX STA (19:28)
[2020-06-03] MEDS ORDERED: methylPREDNISolone SOD SUC 125 MG/2 ML VIAL IV STA (19:28)
[2020-06-03] MEDS ORDERED: ONDANSETRON 4 MG/2 ML VIAL IV STA (19:28)
[2020-06-03] MEDS ORDERED: MORPHINE 4 MG/1 ML VIAL IV STA (19:28)
[2020-06-03] MEDS ORDERED: FUROSEMIDE 100 MG/10 ML VIAL IV STA (19:28)
[2020-06-03 20:26] LABS: Basophils % 0.5 % (0.0-0.8); Eosinophils # 0.1 10*3/uL (0.0-0.87); Eosinophils % 1.6 % (0.00-10.9); Hematocrit 36.3 VOL% (42.0-52.0); Hemoglobin 10.9 GM/DL (14.0-18.0); Immature Granulocytes % 1.1 %; Immature Granulocytes Absolute 0.06 #; Lymphocytes # 1.1 10*3/uL (1.4-4.0); Lymphocytes % 19.2 % (21.2-54.2); Mean Corpuscular Volume 87.1 FL (87-102); Mean Platelet Volume 9.7 FL (9.6-12.0); Monocytes % 19.7 % (1.7-12.7); Neutrophils % 57.9 % (38.7-73.9); Platelet Count 391 T/CUMM (130-400); Red Blood Count 4.17 MC/CUMM (3.8-5.5); Red Cell Distribution Width 19.9 % (9.3-17.3); White Blood Count 5.6 T/CUMM (4-12)
[2020-06-03 20:35] LABS: Alanine Aminotransferase 17 U/L (16-61); Albumin 2.2 G/DL (3.4-5.0); Alkaline Phosphatase 238 U/L (45-117); Aspartate Amino Transferase 29 U/L (0-37); Blood Urea Nitrogen 28 MG/DL (7-18); Calcium 8.2 MG/DL (8.5-10.1); Carbon Dioxide 28 MMOL/L (21-32); Estimated Glom Filtration Rate 77 ML/MIN; Glucose 83 MG/DL (74-106); Osmolality,Calculated 274.1 MOS/KG (273-304); Potassium 5.3 MMOL/L (3.5-5.1); Sodium 135 MMOL/L (136-145); Total Protein 8.3 G/DL (5.0-7.5); Troponin I 0.023 NG/ML (0.00-0.045)
[2020-06-03 20:37] LABS: Bilirubin,Urine Negative (Negative); Blood, Urine Small mg/dL (Negative); Glucose,Urine (UA) Negative (Negative); Hyaline Casts,Urine 7 /LPF (0-3); Ketones,Urine Negative (Negative); Mucus,Urine Occasional /LPF (Occasional); Nitrite,Urine Negative (Negative); Protein,Urine Negative; RBC,Urine 1 /HPF (0-4); Squamous Epithelial Cell,Urine Occasional /HPF (0-10); Urine Appearance CLEAR (Clear); Urine Color Yellow (Yellow); Urine Specific Gravity 1.015 (1.001-1.035); WBC,Urine 2 /HPF (0-6)
[2020-06-03 20:38] LABS: INR 1.2; PT Patient Result 13.2 SECS (9.8-11.9)
[2020-06-03] MEDS ORDERED: DILTIAZEM 50 MG/10 ML VIAL IV STA (20:39)
[2020-06-03 20:51] LABS: Barbiturates Screen,Urine Negative (Negative); Benzodiazepines Screen,Urine Negative (Negative); Cannabinoid Screen,Urine Negative (Negative); Opiate Screen,Urine Negative (Negative); Phencyclidine Screen,Urine Negative (Negative)
[2020-06-03] MEDS ORDERED: PIPERACILLIN/TAZOBACTAM 3,375 MG in SODIUM CHLORIDE 0.9% 100 ML IV STA (20:54)
[2020-06-03 21:14] LABS: Hypochromasia 3+; Lymphocytes 16 % (20-55); Microcytosis 2+; Segmented Neutrophils 61 % (50-85); Total Cells Counted 100
[2020-06-03] MEDS ORDERED: MAGNESIUM SULF RIDER 2 GM in PREMIX 1 EACH IV PRN (21:31)
[2020-06-03] MEDS ORDERED: MAGNESIUM SULF RIDER 4 GM in PREMIX 1 EACH IV PRN (21:31)
[2020-06-03] MEDS ORDERED: GLUCAGON 1 MG VIAL IM PRN (21:31)
[2020-06-03] MEDS ORDERED: ACETAMINOPHEN 325 MG TABLET PO PRN (21:31)
[2020-06-03] MEDS ORDERED: NICOTINE 21 MG/24 HR PATCH TRANSDERM PRN (21:31)
[2020-06-03] MEDS ORDERED: DEXTROSE 50% 25 GM/50 ML VIAL IV PRN (21:31)
[2020-06-03] MEDS ORDERED: ONDANSETRON 4 MG/2 ML VIAL IV PRN (21:31)
[2020-06-03] MEDS ORDERED: ZALEPLON 5 MG CAPSULE PO PRN (21:31)
[2020-06-04] MEDS: ALBUTEROL/IPRATROPIUM 3 ML NEB RESP TX SCH ×4 (00:47→19:58)
[2020-06-04 07:12] LABS: Basophils % 0.2 % (0.0-0.8); Hemoglobin 10.4 GM/DL (14.0-18.0); Immature Granulocytes % 0.8 %; Immature Granulocytes Absolute 0.04 #; Lymphocytes # 0.7 10*3/uL (1.4-4.0); Lymphocytes % 13.6 % (21.2-54.2); Mean Corpuscular HGB Conc 31.5 GM/DL (32-36); Mean Corpuscular Volume 83.5 FL (87-102); Mean Platelet Volume 9.3 FL (9.6-12.0); Monocytes % 3.1 % (1.7-12.7); Neutrophils % 82.3 % (38.7-73.9); Platelet Count 343 T/CUMM (130-400); Red Blood Count 3.95 MC/CUMM (3.8-5.5); Red Cell Distribution Width 18.8 % (9.3-17.3); White Blood Count 5.1 T/CUMM (4-12)
[2020-06-04 07:46] LABS: Bilirubin,Total 1.2 MG/DL (0.2-1.0); Calcium 8.2 MG/DL (8.5-10.1); Osmolality,Calculated 282.1 MOS/KG (273-304); Potassium 4.2 MMOL/L (3.5-5.1)
[2020-06-04] MEDS: FUROSEMIDE 40 MG/4 ML VIAL IV SCH ×2 (08:17→16:18)
[2020-06-04] MEDS: PANTOPRAZOLE 40 MG TABLET PO SCH (08:17)
[2020-06-04] MEDS ORDERED: ENOXAPARIN 40 MG/0.4 ML SYRINGE SUBCUT SCH (09:00)
[2020-06-04] MEDS ORDERED: ENOXAPARIN 100 MG/ML SYRINGE SUBCUT SCH (09:00)
[2020-06-04] MEDS ORDERED: METOPROLOL SUCCINATE XL 25 MG TABLET PO SCH (09:00)
[2020-06-04] MEDS: APIXABAN 5 MG TABLET PO SCH ×2 (09:09→21:03)
[2020-06-04] MEDS ORDERED: AMIODARONE 200 MG TABLET PO SCH (09:26)
[2020-06-04] MEDS ORDERED: AMIODARONE INJ 150 MG in DEXTROSE 5% 100 ML IV ONE (11:12)
[2020-06-04] MEDS ORDERED: AMIODARONE INJ 450 MG in DEXTROSE 5% 241 ML IV SCH ×2 (11:30→17:30)
[2020-06-04] MEDS ORDERED: MAGNESIUM SULF RIDER 2 GM in PREMIX 1 EACH IV ONE (11:47)
[2020-06-04] MEDS ORDERED: METOPROLOL TARTRATE 5 MG/5 ML VIAL IV ONE (11:48)
[2020-06-04] MEDS: ASCORBIC ACID 500 MG TABLET PO SCH ×2 (12:44→21:02)
[2020-06-04] MEDS: METOPROLOL SUCCINATE XL 25 MG TABLET PO SCH (21:03)
[2020-06-05] MEDS: ALBUTEROL/IPRATROPIUM 3 ML NEB RESP TX SCH ×4 (00:39→19:51)
[2020-06-05 05:16] LABS: Basophils % 0.1 % (0.0-0.8); Eosinophils % 0.1 % (0.00-10.9); Hematocrit 33.1 VOL% (42.0-52.0); Hemoglobin 10.6 GM/DL (14.0-18.0); Immature Granulocytes % 0.8 %; Immature Granulocytes Absolute 0.07 #; Lymphocytes % 11.3 % (21.2-54.2); Mean Corpuscular Volume 83.4 FL (87-102); Mean Platelet Volume 9.1 FL (9.6-12.0); Monocytes % 13.6 % (1.7-12.7); Neutrophils % 74.1 % (38.7-73.9); Platelet Count 351 T/CUMM (130-400); Red Blood Count 3.97 MC/CUMM (3.8-5.5); Red Cell Distribution Width 18.5 % (9.3-17.3); White Blood Count 8.6 T/CUMM (4-12)
[2020-06-05 05:45] LABS: Calcium 8.3 MG/DL (8.5-10.1); Osmolality,Calculated 281.4 MOS/KG (273-304); Potassium 3.7 MMOL/L (3.5-5.1); Thyroid Stimulating Hormone 3.7 uIU/ml (0.358-3.74)
[2020-06-05 05:48] LABS: % Iron Saturation 12.4 % (18-50)
[2020-06-05] MEDS ORDERED: DIGOXIN 0.5 MG/2 ML AMP IV ONE ×2 (08:06→14:49)
[2020-06-05] MEDS: PANTOPRAZOLE 40 MG TABLET PO SCH (09:23)
[2020-06-05] MEDS: ASPIRIN EC 81 MG TABLET PO SCH (09:23)
[2020-06-05] MEDS: APIXABAN 5 MG TABLET PO SCH ×2 (09:23→20:31)
[2020-06-05] MEDS: ASCORBIC ACID 500 MG TABLET PO SCH ×2 (09:23→20:30)
[2020-06-05] MEDS: FUROSEMIDE 40 MG/4 ML VIAL IV SCH ×2 (09:24→17:03)
[2020-06-05] MEDS: METOPROLOL SUCCINATE XL 25 MG TABLET PO SCH ×3 (09:27→20:30)
[2020-06-05] MEDS ORDERED: LIDOCAINE 2% 5 ML VIAL ONE (12:44)
[2020-06-05] MEDS ORDERED: propofoL 200 MG/20 ML VIAL IV ONE (13:28)
[2020-06-05] MEDS ORDERED: ETOMIDATE 40 MG/20 ML VIAL IV ONE (13:29)
[2020-06-05] MEDS ORDERED: SODIUM CHLORIDE 0.45% 1,000 ML IV SCH (15:00)
[2020-06-05] MEDS: FERROUS SULFATE 325 MG TABLET PO SCH (20:31)
[2020-06-06] MEDS: ALBUTEROL/IPRATROPIUM 3 ML NEB RESP TX SCH ×4 (00:47→18:48)
[2020-06-06 06:04] LABS: Basophils % 0.5 % (0.0-0.8); Eosinophils # 0.1 10*3/uL (0.0-0.87); Eosinophils % 1.7 % (0.00-10.9); Hematocrit 35.6 VOL% (42.0-52.0); Hemoglobin 10.7 GM/DL (14.0-18.0); Immature Granulocytes % 1.1 %; Immature Granulocytes Absolute 0.07 #; Lymphocytes # 1.3 10*3/uL (1.4-4.0); Lymphocytes % 20.8 % (21.2-54.2); Mean Corpuscular HGB Conc 30.1 GM/DL (32-36); Mean Corpuscular Volume 85.8 FL (87-102); Mean Platelet Volume 8.9 FL (9.6-12.0); Monocytes % 18.6 % (1.7-12.7); Neutrophils % 57.3 % (38.7-73.9); Platelet Count 351 T/CUMM (130-400); Red Blood Count 4.15 MC/CUMM (3.8-5.5); Red Cell Distribution Width 19.1 % (9.3-17.3); White Blood Count 6.3 T/CUMM (4-12)
[2020-06-06 06:27] LABS: Eosinophils 2 % (0-10); Hypochromasia 1+; Lymphocytes 22 % (20-55); Metamyelocytes 1 %; Segmented Neutrophils 56 % (50-85); Total Cells Counted 100
[2020-06-06 06:28] LABS: Microcytosis 1+; Platelet Estimate Normal; Target Cells Slight
[2020-06-06 06:35] LABS: Calcium 8.1 MG/DL (8.5-10.1); Potassium 3.7 MMOL/L (3.5-5.1)
[2020-06-06] MEDS: ASPIRIN EC 81 MG TABLET PO SCH (08:33)
[2020-06-06] MEDS: PANTOPRAZOLE 40 MG TABLET PO SCH (08:33)
[2020-06-06] MEDS: metOLazone 5 MG TABLET PO SCH (08:33)
[2020-06-06] MEDS: ASCORBIC ACID 500 MG TABLET PO SCH ×2 (08:33→20:32)
[2020-06-06] MEDS: AMIODARONE 200 MG TABLET PO SCH ×2 (08:33→20:32)
[2020-06-06] MEDS: APIXABAN 5 MG TABLET PO SCH ×2 (08:33→20:32)
[2020-06-06] MEDS: FERROUS SULFATE 325 MG TABLET PO SCH ×2 (08:34→20:32)
[2020-06-06] MEDS ORDERED: METOPROLOL SUCCINATE XL 25 MG TABLET PO SCH (09:00)
[2020-06-06] MEDS: FUROSEMIDE 40 MG/4 ML VIAL IV SCH ×2 (09:13→17:09)
[2020-06-06] MEDS ORDERED: DIGOXIN 0.5 MG/2 ML AMP IV ONE (11:09)
[2020-06-06] MEDS ORDERED: GLUCAGON 1 MG VIAL IM PRN (11:27)
[2020-06-06] MEDS ORDERED: DEXTROSE 50% 25 GM/50 ML VIAL IV PRN (11:27)
[2020-06-06] MEDS: METOPROLOL SUCCINATE XL 25 MG TABLET PO SCH (11:49)
[2020-06-06] MEDS: INSULIN LISPRO 100 UNIT/ML SUBCUT SCH ×3 (12:11→20:32)
[2020-06-07] MEDS: ALBUTEROL/IPRATROPIUM 3 ML NEB RESP TX SCH ×3 (02:22→13:58)
[2020-06-07 05:27] LABS: Basophils % 0.7 % (0.0-0.8); Eosinophils # 0.1 10*3/uL (0.0-0.87); Eosinophils % 2.1 % (0.00-10.9); Hematocrit 33.8 VOL% (42.0-52.0); Hemoglobin 10.4 GM/DL (14.0-18.0); Immature Granulocytes Absolute 0.06 #; Lymphocytes % 17.9 % (21.2-54.2); Mean Corpuscular HGB Conc 30.8 GM/DL (32-36); Mean Corpuscular Volume 84.1 FL (87-102); Mean Platelet Volume 9.2 FL (9.6-12.0); Monocytes % 16.9 % (1.7-12.7); Neutrophils % 61.4 % (38.7-73.9); Platelet Count 326 T/CUMM (130-400); Red Blood Count 4.02 MC/CUMM (3.8-5.5); Red Cell Distribution Width 18.9 % (9.3-17.3); White Blood Count 5.8 T/CUMM (4-12)
[2020-06-07 05:52] LABS: Eosinophils 3 % (0-10); Hypochromasia 1+; Lymphocytes 16 % (20-55); Microcytosis 1+; Platelet Estimate Adequate; Segmented Neutrophils 68 % (50-85); Total Cells Counted 100
[2020-06-07 05:55] LABS: Calcium 8.1 MG/DL (8.5-10.1); Osmolality,Calculated 274.5 MOS/KG (273-304); Potassium 3.4 MMOL/L (3.5-5.1)
[2020-06-07 05:57] LABS: Bilirubin,Total 0.9 MG/DL (0.2-1.0); Calcium 8.2 MG/DL (8.5-10.1); Osmolality,Calculated 274.5 MOS/KG (273-304); Potassium 3.4 MMOL/L (3.5-5.1); Risk Ratio 2.26; Total Protein 7.8 G/DL (5.0-7.5); VLDL CHOLESTEROL 5.6 MG/DL
[2020-06-07] MEDS ORDERED: POTASSIUM CHLORIDE 20 MEQ TABLET PO ONE (08:05)
[2020-06-07] MEDS ORDERED: MAGNESIUM SULF INJ 3 GM in SODIUM CHLORIDE 0.9% 100 ML IV ONE (08:05)
[2020-06-07] MEDS: INSULIN LISPRO 100 UNIT/ML SUBCUT SCH ×4 (08:43→21:00)
[2020-06-07] MEDS: ASCORBIC ACID 500 MG TABLET PO SCH ×2 (08:47→20:21)
[2020-06-07] MEDS: FERROUS SULFATE 325 MG TABLET PO SCH ×2 (08:47→20:21)
[2020-06-07] MEDS: AMIODARONE 200 MG TABLET PO SCH ×2 (08:47→20:21)
[2020-06-07] MEDS: APIXABAN 5 MG TABLET PO SCH ×2 (08:47→20:21)
[2020-06-07] MEDS: metOLazone 5 MG TABLET PO SCH (08:48)
[2020-06-07] MEDS: PANTOPRAZOLE 40 MG TABLET PO SCH (08:48)
[2020-06-07] MEDS: ASPIRIN EC 81 MG TABLET PO SCH (08:48)
[2020-06-07] MEDS: METOPROLOL SUCCINATE XL 25 MG TABLET PO SCH (08:48)
[2020-06-07] MEDS: FUROSEMIDE 40 MG/4 ML VIAL IV SCH ×2 (08:49→16:09)
[2020-06-07] MEDS ORDERED: DIGOXIN 0.5 MG/2 ML AMP IV ONE (11:39)
[2020-06-07] MEDS: COLCHICINE 0.6 MG CAPSULE PO SCH ×2 (17:22→20:21)
[2020-06-08] MEDS: ALBUTEROL/IPRATROPIUM 3 ML NEB RESP TX SCH ×4 (04:09→19:38)
[2020-06-08 06:49] LABS: Basophils % 0.5 % (0.0-0.8); Eosinophils # 0.1 10*3/uL (0.0-0.87); Hematocrit 35.8 VOL% (42.0-52.0); Hemoglobin 10.9 GM/DL (14.0-18.0); Immature Granulocytes % 0.9 %; Immature Granulocytes Absolute 0.06 #; Lymphocytes # 1.2 10*3/uL (1.4-4.0); Lymphocytes % 19.1 % (21.2-54.2); Mean Corpuscular HGB Conc 30.4 GM/DL (32-36); Mean Corpuscular Volume 85.2 FL (87-102); Monocytes % 14.8 % (1.7-12.7); NRBC # 0.02 10*3/uL; Neutrophils % 62.7 % (38.7-73.9); Platelet Count 306 T/CUMM (130-400); Red Cell Distribution Width 19.1 % (9.3-17.3); White Blood Count 6.5 T/CUMM (4-12)
[2020-06-08 07:17] LABS: Calcium 8.5 MG/DL (8.5-10.1); Osmolality,Calculated 275.4 MOS/KG (273-304); Potassium 4.1 MMOL/L (3.5-5.1)
[2020-06-08] MEDS ORDERED: DIGOXIN 0.5 MG/2 ML AMP IV ONE (09:18)
[2020-06-08] MEDS: COLCHICINE 0.6 MG CAPSULE PO SCH ×3 (09:58→20:58)
[2020-06-08] MEDS: ASPIRIN EC 81 MG TABLET PO SCH (09:59)
[2020-06-08] MEDS: PANTOPRAZOLE 40 MG TABLET PO SCH (09:59)
[2020-06-08] MEDS: AMIODARONE 200 MG TABLET PO SCH ×2 (09:59→20:57)
[2020-06-08] MEDS: ASCORBIC ACID 500 MG TABLET PO SCH ×2 (09:59→20:55)
[2020-06-08] MEDS: metOLazone 5 MG TABLET PO SCH (09:59)
[2020-06-08] MEDS: APIXABAN 5 MG TABLET PO SCH ×2 (09:59→20:57)
[2020-06-08] MEDS: FERROUS SULFATE 325 MG TABLET PO SCH ×2 (09:59→20:56)
[2020-06-08] MEDS: METOPROLOL SUCCINATE XL 25 MG TABLET PO SCH ×3 (10:00→20:56)
[2020-06-08] MEDS: FUROSEMIDE 40 MG/4 ML VIAL IV SCH ×2 (10:00→16:22)
[2020-06-08] MEDS: INSULIN LISPRO 100 UNIT/ML SUBCUT SCH ×4 (10:27→20:58)
[2020-06-08] MEDS ORDERED: predniSONE 20 MG TABLET PO ONE (10:56)
[2020-06-08] MEDS: ATORVASTATIN 20 MG TABLET PO SCH (20:57)
[2020-06-09] MEDS: ALBUTEROL/IPRATROPIUM 3 ML NEB RESP TX SCH ×4 (00:37→19:19)
[2020-06-09 05:18] LABS: Basophils % 0.4 % (0.0-0.8); Eosinophils # 0.2 10*3/uL (0.0-0.87); Eosinophils % 2.3 % (0.00-10.9); Hematocrit 35.2 VOL% (42.0-52.0); Hemoglobin 10.9 GM/DL (14.0-18.0); Immature Granulocytes % 0.8 %; Immature Granulocytes Absolute 0.06 #; Lymphocytes # 1.4 10*3/uL (1.4-4.0); Lymphocytes % 19.4 % (21.2-54.2); Mean Corpuscular Volume 84.2 FL (87-102); Monocytes % 15.6 % (1.7-12.7); Neutrophils % 61.5 % (38.7-73.9); Platelet Count 318 T/CUMM (130-400); Red Blood Count 4.18 MC/CUMM (3.8-5.5); Red Cell Distribution Width 19.2 % (9.3-17.3); White Blood Count 7.4 T/CUMM (4-12)
[2020-06-09 05:32] LABS: Calcium 8.5 MG/DL (8.5-10.1); Osmolality,Calculated 277.2 MOS/KG (273-304); Potassium 3.4 MMOL/L (3.5-5.1)
[2020-06-09 06:13] LABS: Anisocytosis 2+; Band Neutrophils 3 % (0-10); Eosinophils 5 % (0-10); Lymphocytes 17 % (20-55); Platelet Estimate Normal; Segmented Neutrophils 57 % (50-85); Total Cells Counted 100
[2020-06-09 06:14] LABS: Macrocytosis 1+; Smudge Cells Few; Target Cells Few
[2020-06-09] MEDS: INSULIN LISPRO 100 UNIT/ML SUBCUT SCH ×4 (09:29→23:13)
[2020-06-09] MEDS: APIXABAN 5 MG TABLET PO SCH ×2 (09:31→23:13)
[2020-06-09] MEDS: COLCHICINE 0.6 MG CAPSULE PO SCH ×3 (09:31→23:13)
[2020-06-09] MEDS: AMIODARONE 200 MG TABLET PO SCH ×2 (09:32→23:13)
[2020-06-09] MEDS: METOPROLOL SUCCINATE XL 25 MG TABLET PO SCH ×3 (09:32→23:14)
[2020-06-09] MEDS: ASPIRIN EC 81 MG TABLET PO SCH (09:32)
[2020-06-09] MEDS: FERROUS SULFATE 325 MG TABLET PO SCH ×2 (09:32→23:13)
[2020-06-09] MEDS: PANTOPRAZOLE 40 MG TABLET PO SCH (09:32)
[2020-06-09] MEDS: POTASSIUM CHLORIDE 20 MEQ TABLET PO PRN (09:32)
[2020-06-09] MEDS: ASCORBIC ACID 500 MG TABLET PO SCH ×2 (09:32→23:14)
[2020-06-09] MEDS: FUROSEMIDE 40 MG/4 ML VIAL IV SCH ×2 (09:32→15:00)
[2020-06-09] MEDS: metOLazone 5 MG TABLET PO SCH (09:33)
[2020-06-09] MEDS: cefTRIAXone 1,000 MG in SYRINGE 1 EACH IV SCH (11:51)
[2020-06-09] MEDS: ATORVASTATIN 20 MG TABLET PO SCH (23:14)
[2020-06-10] MEDS: ALBUTEROL/IPRATROPIUM 3 ML NEB RESP TX SCH ×4 (00:08→19:04)
[2020-06-10 05:28] LABS: Basophils % 0.4 % (0.0-0.8); Eosinophils # 0.1 10*3/uL (0.0-0.87); Eosinophils % 1.6 % (0.00-10.9); Hematocrit 35.8 VOL% (42.0-52.0); Hemoglobin 10.9 GM/DL (14.0-18.0); Immature Granulocytes % 0.6 %; Immature Granulocytes Absolute 0.05 #; Lymphocytes # 1.4 10*3/uL (1.4-4.0); Lymphocytes % 17.5 % (21.2-54.2); Mean Corpuscular HGB Conc 30.4 GM/DL (32-36); Mean Corpuscular Volume 85.2 FL (87-102); Monocytes % 17.6 % (1.7-12.7); Neutrophils % 62.3 % (38.7-73.9); Platelet Count 306 T/CUMM (130-400); Red Cell Distribution Width 19.3 % (9.3-17.3)
[2020-06-10 05:40] LABS: Calcium 8.4 MG/DL (8.5-10.1); Osmolality,Calculated 275.2 MOS/KG (273-304); Potassium 3.7 MMOL/L (3.5-5.1)
[2020-06-10] MEDS: INSULIN LISPRO 100 UNIT/ML SUBCUT SCH ×4 (08:21→20:24)
[2020-06-10 09:01] LABS: Band Neutrophils 1 % (0-10); Eosinophils 3 % (0-10); Lymphocytes 18 % (20-55); Platelet Estimate Normal; Segmented Neutrophils 59 % (50-85); Total Cells Counted 100
[2020-06-10 09:02] LABS: Anisocytosis 1+
[2020-06-10] MEDS: FUROSEMIDE 40 MG/4 ML VIAL IV SCH ×2 (09:42→15:07)
[2020-06-10] MEDS: FERROUS SULFATE 325 MG TABLET PO SCH ×2 (09:44→21:29)
[2020-06-10] MEDS: PANTOPRAZOLE 40 MG TABLET PO SCH (09:44)
[2020-06-10] MEDS: ASPIRIN EC 81 MG TABLET PO SCH (09:44)
[2020-06-10] MEDS: AMIODARONE 200 MG TABLET PO SCH ×2 (09:44→21:31)
[2020-06-10] MEDS: metOLazone 5 MG TABLET PO SCH (09:45)
[2020-06-10] MEDS: ASCORBIC ACID 500 MG TABLET PO SCH ×2 (09:45→21:30)
[2020-06-10] MEDS: METOPROLOL SUCCINATE XL 25 MG TABLET PO SCH ×2 (09:46→21:29)
[2020-06-10] MEDS: APIXABAN 5 MG TABLET PO SCH ×2 (09:47→21:31)
[2020-06-10] MEDS: COLCHICINE 0.6 MG CAPSULE PO SCH ×3 (09:47→21:29)
[2020-06-10] MEDS: cefTRIAXone 1,000 MG in SYRINGE 1 EACH IV SCH (12:44)
[2020-06-10] MEDS: ATORVASTATIN 20 MG TABLET PO SCH (21:30)
[2020-06-11] MEDS: ALBUTEROL/IPRATROPIUM 3 ML NEB RESP TX SCH ×4 (00:49→18:23)
[2020-06-11 05:18] LABS: Basophils % 0.4 % (0.0-0.8); Eosinophils # 0.2 10*3/uL (0.0-0.87); Eosinophils % 2.1 % (0.00-10.9); Hematocrit 38.2 VOL% (42.0-52.0); Hemoglobin 11.6 GM/DL (14.0-18.0); Immature Granulocytes % 0.4 %; Immature Granulocytes Absolute 0.03 #; Lymphocytes # 1.4 10*3/uL (1.4-4.0); Lymphocytes % 19.6 % (21.2-54.2); Mean Corpuscular HGB Conc 30.4 GM/DL (32-36); Mean Corpuscular Volume 85.1 FL (87-102); Mean Platelet Volume 8.6 FL (9.6-12.0); Monocytes % 15.7 % (1.7-12.7); Neutrophils % 61.8 % (38.7-73.9); Platelet Count 289 T/CUMM (130-400); Red Blood Count 4.49 MC/CUMM (3.8-5.5); Red Cell Distribution Width 19.3 % (9.3-17.3); White Blood Count 7.2 T/CUMM (4-12)
[2020-06-11 05:42] LABS: Eosinophils 3 % (0-10); Lymphocytes 19 % (20-55); Platelet Estimate Adequate; Segmented Neutrophils 63 % (50-85); Total Cells Counted 100
[2020-06-11 05:43] LABS: Hypochromasia 1+; Microcytosis 1+
[2020-06-11 05:46] LABS: Calcium 8.7 MG/DL (8.5-10.1); Osmolality,Calculated 271.5 MOS/KG (273-304); Potassium 3.4 MMOL/L (3.5-5.1)
[2020-06-11] MEDS: INSULIN LISPRO 100 UNIT/ML SUBCUT SCH ×4 (08:06→21:25)
[2020-06-11] MEDS: COLCHICINE 0.6 MG CAPSULE PO SCH ×3 (09:11→20:55)
[2020-06-11] MEDS: FUROSEMIDE 40 MG/4 ML VIAL IV SCH ×2 (09:11→16:21)
[2020-06-11] MEDS: APIXABAN 5 MG TABLET PO SCH ×2 (09:12→20:55)
[2020-06-11] MEDS: metOLazone 5 MG TABLET PO SCH (09:12)
[2020-06-11] MEDS: ASCORBIC ACID 500 MG TABLET PO SCH ×2 (09:12→20:55)
[2020-06-11] MEDS: POTASSIUM CHLORIDE 20 MEQ TABLET PO PRN (09:12)
[2020-06-11] MEDS: ASPIRIN EC 81 MG TABLET PO SCH (09:12)
[2020-06-11] MEDS: FERROUS SULFATE 325 MG TABLET PO SCH ×2 (09:12→20:55)
[2020-06-11] MEDS: AMIODARONE 200 MG TABLET PO SCH ×2 (09:13→20:55)
[2020-06-11] MEDS: PANTOPRAZOLE 40 MG TABLET PO SCH (09:13)
[2020-06-11] MEDS: METOPROLOL SUCCINATE XL 25 MG TABLET PO SCH ×2 (09:13→20:57)
[2020-06-11] MEDS: cefTRIAXone 1,000 MG in SYRINGE 1 EACH IV SCH (13:00)
[2020-06-11] MEDS: ATORVASTATIN 20 MG TABLET PO SCH (20:55)
[2020-06-12] MEDS: ALBUTEROL/IPRATROPIUM 3 ML NEB RESP TX SCH ×4 (00:42→19:26)
[2020-06-12 06:41] LABS: Calcium 8.7 MG/DL (8.5-10.1); Osmolality,Calculated 269.5 MOS/KG (273-304); Potassium 3.4 MMOL/L (3.5-5.1)
[2020-06-12] MEDS: INSULIN LISPRO 100 UNIT/ML SUBCUT SCH ×4 (08:19→20:31)
[2020-06-12] MEDS: FUROSEMIDE 40 MG/4 ML VIAL IV SCH (09:24)
[2020-06-12] MEDS: POTASSIUM CHLORIDE 20 MEQ TABLET PO PRN (09:24)
[2020-06-12] MEDS: ASPIRIN EC 81 MG TABLET PO SCH (09:24)
[2020-06-12] MEDS: COLCHICINE 0.6 MG CAPSULE PO SCH ×3 (09:24→20:31)
[2020-06-12] MEDS: PANTOPRAZOLE 40 MG TABLET PO SCH (09:24)
[2020-06-12] MEDS: APIXABAN 5 MG TABLET PO SCH ×2 (09:25→20:31)
[2020-06-12] MEDS: ASCORBIC ACID 500 MG TABLET PO SCH ×2 (09:25→20:31)
[2020-06-12] MEDS: metOLazone 5 MG TABLET PO SCH (09:25)
[2020-06-12] MEDS: METOPROLOL SUCCINATE XL 25 MG TABLET PO SCH ×2 (09:25→20:31)
[2020-06-12] MEDS: FERROUS SULFATE 325 MG TABLET PO SCH ×2 (09:25→20:31)
[2020-06-12] MEDS: AMIODARONE 200 MG TABLET PO SCH ×2 (09:25→20:31)
[2020-06-12] MEDS: cefTRIAXone 1,000 MG in SYRINGE 1 EACH IV SCH (11:20)
[2020-06-12] MEDS: FUROSEMIDE 80 MG TABLET PO SCH (16:39)
[2020-06-12] MEDS: SPIRONOLACTONE 25 MG TABLET PO SCH (16:39)
[2020-06-12] MEDS: ATORVASTATIN 20 MG TABLET PO SCH (20:31)
[2020-06-13] MEDS: ALBUTEROL/IPRATROPIUM 3 ML NEB RESP TX SCH ×4 (00:36→19:31)
[2020-06-13 06:27] LABS: Basophils % 0.4 % (0.0-0.8); Eosinophils # 0.1 10*3/uL (0.0-0.87); Eosinophils % 2.5 % (0.00-10.9); Hematocrit 40.3 VOL% (42.0-52.0); Hemoglobin 12.3 GM/DL (14.0-18.0); Immature Granulocytes % 0.6 %; Immature Granulocytes Absolute 0.03 #; Lymphocytes # 1.2 10*3/uL (1.4-4.0); Lymphocytes % 22.7 % (21.2-54.2); Mean Corpuscular HGB Conc 30.5 GM/DL (32-36); Mean Corpuscular Volume 85.7 FL (87-102); Mean Platelet Volume 9.1 FL (9.6-12.0); Monocytes % 21.6 % (1.7-12.7); Neutrophils % 52.2 % (38.7-73.9); Platelet Count 247 T/CUMM (130-400); Red Cell Distribution Width 19.2 % (9.3-17.3); White Blood Count 5.3 T/CUMM (4-12)
[2020-06-13 06:31] LABS: Calcium 8.9 MG/DL (8.5-10.1); Osmolality,Calculated 268.7 MOS/KG (273-304); Potassium 3.3 MMOL/L (3.5-5.1)
[2020-06-13 06:40] LABS: Eosinophils 5 % (0-10); Hypochromasia 1+; Lymphocytes 24 % (20-55); Microcytosis 1+; Platelet Estimate Adequate; Segmented Neutrophils 53 % (50-85); Total Cells Counted 100
[2020-06-13] MEDS: FUROSEMIDE 80 MG TABLET PO SCH ×2 (08:36→15:08)
[2020-06-13] MEDS: FERROUS SULFATE 325 MG TABLET PO SCH ×2 (08:36→20:51)
[2020-06-13] MEDS: COLCHICINE 0.6 MG CAPSULE PO SCH ×2 (08:36→15:08)
[2020-06-13] MEDS: APIXABAN 5 MG TABLET PO SCH ×2 (08:36→20:51)
[2020-06-13] MEDS: SPIRONOLACTONE 25 MG TABLET PO SCH (08:36)
[2020-06-13] MEDS: AMIODARONE 200 MG TABLET PO SCH ×2 (08:36→20:51)
[2020-06-13] MEDS: ASCORBIC ACID 500 MG TABLET PO SCH ×2 (08:36→20:52)
[2020-06-13] MEDS: ASPIRIN EC 81 MG TABLET PO SCH (08:36)
[2020-06-13] MEDS: PANTOPRAZOLE 40 MG TABLET PO SCH (08:36)
[2020-06-13] MEDS: METOPROLOL SUCCINATE XL 25 MG TABLET PO SCH ×2 (08:37→20:52)
[2020-06-13] MEDS: metOLazone 5 MG TABLET PO SCH (08:37)
[2020-06-13] MEDS: INSULIN LISPRO 100 UNIT/ML SUBCUT SCH ×4 (08:39→20:02)
[2020-06-13] MEDS: POTASSIUM CHLORIDE 20 MEQ TABLET PO PRN ×2 (08:40→15:52)
[2020-06-13] MEDS: cefTRIAXone 1,000 MG in SYRINGE 1 EACH IV SCH (15:09)
[2020-06-13] MEDS: methylPREDNISolone 4 MG TABLET PO SCH ×2 (17:58→20:52)
[2020-06-13] MEDS: ATORVASTATIN 20 MG TABLET PO SCH (20:51)
[2020-06-14] MEDS: ALBUTEROL/IPRATROPIUM 3 ML NEB RESP TX SCH ×3 (01:03→14:07)
[2020-06-14 06:53] LABS: Osmolality,Calculated 269.7 MOS/KG (273-304); Potassium 4.6 MMOL/L (3.5-5.1)
[2020-06-14] MEDS: INSULIN LISPRO 100 UNIT/ML SUBCUT SCH ×2 (08:34→11:49)
[2020-06-14] MEDS ORDERED: THIAMINE 100 MG TABLET PO SCH (09:00)
[2020-06-14] MEDS: methylPREDNISolone 4 MG TABLET PO SCH ×2 (10:31→13:36)
[2020-06-14] MEDS: FUROSEMIDE 80 MG TABLET PO SCH (10:33)
[2020-06-14] MEDS: ASPIRIN EC 81 MG TABLET PO SCH (11:48)
[2020-06-14] MEDS: PANTOPRAZOLE 40 MG TABLET PO SCH (11:48)
[2020-06-14] MEDS: APIXABAN 5 MG TABLET PO SCH (11:48)
[2020-06-14] MEDS: FERROUS SULFATE 325 MG TABLET PO SCH (11:48)
[2020-06-14] MEDS: AMIODARONE 200 MG TABLET PO SCH (11:48)
[2020-06-14] MEDS: SPIRONOLACTONE 25 MG TABLET PO SCH (11:48)
[2020-06-14] MEDS: ASCORBIC ACID 500 MG TABLET PO SCH (11:49)
[2020-06-14] MEDS: METOPROLOL SUCCINATE XL 25 MG TABLET PO SCH (11:49)
[2020-06-14] MEDS: metOLazone 5 MG TABLET PO SCH (11:49)
[2020-06-14 12:25] VITALS: BP 114/76
== END 2020-06-14 17:00 | disposition home health service (06) | DRG 194 ==
LOC: EDBD → EDUNIT# → N.ED 18:58 → N.EDINP 21:31 → N.TELES 23:12
PROVIDERS: ADMIT Internal Medicine; ATTEND Internal Medicine

== ENCOUNTER 2020-08-07 11:28 | Inpatient (IN) ==
[2020-08-07] MEDS ORDERED: FUROSEMIDE 40 MG/4 ML VIAL IV STA (11:59)
[2020-08-07 12:06] LABS: Basophils # 0.1 10*3/uL (0.0-0.2); Basophils % 1.1 % (0.0-0.8); Eosinophils # 0.2 10*3/uL (0.0-0.87); Eosinophils % 2.8 % (0.00-10.9); Hematocrit 35.6 VOL% (42.0-52.0); Hemoglobin 10.8 GM/DL (14.0-18.0); Immature Granulocytes % 0.4 %; Immature Granulocytes Absolute 0.02 #; Lymphocytes # 0.9 10*3/uL (1.4-4.0); Lymphocytes % 16.6 % (21.2-54.2); Mean Corpuscular HGB Conc 30.3 GM/DL (32-36); Mean Platelet Volume 9.1 FL (9.6-12.0); Monocytes % 15.6 % (1.7-12.7); Neutrophils % 63.5 % (38.7-73.9); Platelet Count 223 T/CUMM (130-400); Red Blood Count 3.91 MC/CUMM (3.8-5.5); Red Cell Distribution Width 21.6 % (9.3-17.3); White Blood Count 5.3 T/CUMM (4-12)
[2020-08-07 12:38] LABS: Albumin 2.2 G/DL (3.4-5.0); Bilirubin,Total 1.9 MG/DL (0.2-1.0); Calcium 6.9 MG/DL (8.5-10.1); Osmolality,Calculated 283.5 MOS/KG (273-304); Potassium 3.3 MMOL/L (3.5-5.1); Total Protein 5.8 G/DL (6.4-8.2)
[2020-08-07 12:39] LABS: Eosinophils 3 % (0-10); Lymphocytes 19 % (20-55); Metamyelocytes 2 %; Platelet Estimate Normal; Segmented Neutrophils 60 % (50-85); Total Cells Counted 100
[2020-08-07 12:40] LABS: Anisocytosis 1+; Atypical Lymphocytes Few; Macrocytosis 1+
[2020-08-07 13:16] LABS: Bilirubin,Urine Negative (Negative); Blood, Urine Negative (Negative); Glucose,Urine (UA) Negative (Negative); Hyaline Casts,Urine 11 /LPF (0-3); Ketones,Urine Negative (Negative); Nitrite,Urine Negative (Negative); Protein,Urine Negative; RBC,Urine 1 /HPF (0-4); Squamous Epithelial Cell,Urine Occasional /HPF (0-10); Urine Appearance CLEAR (Clear); Urine Color Yellow (Yellow); Urine Specific Gravity 1.008 (1.001-1.035)
[2020-08-07 13:23] LABS: Barbiturates Screen,Urine Negative (Negative); Benzodiazepines Screen,Urine Negative (Negative); Cannabinoid Screen,Urine Negative (Negative); Opiate Screen,Urine Negative (Negative); Phencyclidine Screen,Urine Negative (Negative)
[2020-08-07] MEDS ORDERED: DILTIAZEM 25 MG/5 ML VIAL IV ONE (13:43)
[2020-08-07] MEDS ORDERED: DILTIAZEM 50 MG/10 ML VIAL IV STA (13:47)
[2020-08-07] MEDS ORDERED: DEXTROSE 50% 25 GM/50 ML VIAL IV PRN ×2 (14:09)
[2020-08-07] MEDS ORDERED: GLUCAGON 1 MG VIAL IM PRN ×2 (14:09)
[2020-08-07] MEDS ORDERED: ENOXAPARIN 40 MG/0.4 ML SYRINGE SUBCUT SCH (14:30)
[2020-08-07] MEDS ORDERED: POTASSIUM CHLORIDE 20 MEQ TABLET PO PRN (15:59)
[2020-08-07] MEDS: INSULIN LISPRO 100 UNIT/ML SUBCUT SCH ×2 (16:32→20:41)
[2020-08-07] MEDS ORDERED: traMADol 50 MG TABLET PO ONE (20:10)
[2020-08-07] MEDS: ATORVASTATIN 20 MG TABLET PO SCH (20:40)
[2020-08-07] MEDS: AMIODARONE 200 MG TABLET PO SCH (20:41)
[2020-08-07] MEDS: FUROSEMIDE 40 MG/4 ML VIAL IV SCH (20:43)
[2020-08-08 06:52] LABS: Calcium 8.7 MG/DL (8.5-10.1); Osmolality,Calculated 276.1 MOS/KG (273-304); Potassium 4.1 MMOL/L (3.5-5.1); Risk Ratio 2.48; Thyroid Stimulating Hormone 3.42 uIU/ml (0.358-3.74); VLDL CHOLESTEROL 11.2 MG/DL
[2020-08-08 07:54] LABS: Basophils # 0.1 10*3/uL (0.0-0.2); Basophils % 1.2 % (0.0-0.8); Eosinophils # 0.2 10*3/uL (0.0-0.87); Eosinophils % 3.9 % (0.00-10.9); Hematocrit 38.9 VOL% (42.0-52.0); Hemoglobin 12.1 GM/DL (14.0-18.0); Immature Granulocytes % 0.6 %; Immature Granulocytes Absolute 0.03 #; Lymphocytes # 1.2 10*3/uL (1.4-4.0); Lymphocytes % 23.1 % (21.2-54.2); Mean Corpuscular HGB Conc 31.1 GM/DL (32-36); Mean Corpuscular Volume 89.8 FL (87-102); Mean Platelet Volume 9.8 FL (9.6-12.0); Monocytes % 18.4 % (1.7-12.7); Neutrophils % 52.8 % (38.7-73.9); Platelet Count 262 T/CUMM (130-400); Red Blood Count 4.33 MC/CUMM (3.8-5.5); Red Cell Distribution Width 21.8 % (9.3-17.3); White Blood Count 5.2 T/CUMM (4-12)
[2020-08-08 08:09] LABS: Eosinophils 2 % (0-10); Hypochromasia 1+; Lymphocytes 22 % (20-55); Segmented Neutrophils 64 % (50-85); Total Cells Counted 100
[2020-08-08 08:10] LABS: Anisocytosis 1+; Microcytosis 1+; Ovalocytes Slight; Platelet Estimate Normal; Target Cells Slight
[2020-08-08] MEDS: FUROSEMIDE 40 MG/4 ML VIAL IV SCH ×2 (08:27→21:12)
[2020-08-08] MEDS: SPIRONOLACTONE 25 MG TABLET PO SCH (08:27)
[2020-08-08] MEDS: AMIODARONE 200 MG TABLET PO SCH ×2 (08:27→21:13)
[2020-08-08] MEDS: METOPROLOL SUCCINATE XL 25 MG TABLET PO SCH (08:27)
[2020-08-08] MEDS: PANTOPRAZOLE 40 MG TABLET PO SCH (08:28)
[2020-08-08] MEDS: INSULIN LISPRO 100 UNIT/ML SUBCUT SCH ×4 (08:28→21:59)
[2020-08-08] MEDS: SKIN HEALING OINT (AQUAPHOR) 50 GM TUBE TOP SCH (16:28)
[2020-08-08] MEDS: APIXABAN 5 MG TABLET PO SCH (21:13)
[2020-08-08] MEDS: ATORVASTATIN 20 MG TABLET PO SCH (21:13)
[2020-08-09 06:25] LABS: Calcium 8.7 MG/DL (8.5-10.1); Osmolality,Calculated 277.1 MOS/KG (273-304); Potassium 4.4 MMOL/L (3.5-5.1)
[2020-08-09] MEDS: INSULIN LISPRO 100 UNIT/ML SUBCUT SCH ×4 (08:16→21:47)
[2020-08-09] MEDS: AMIODARONE 200 MG TABLET PO SCH ×2 (08:45→21:47)
[2020-08-09] MEDS: ASPIRIN EC 81 MG TABLET PO SCH (08:45)
[2020-08-09] MEDS: PANTOPRAZOLE 40 MG TABLET PO SCH (08:45)
[2020-08-09] MEDS: SPIRONOLACTONE 25 MG TABLET PO SCH (08:45)
[2020-08-09] MEDS: METOPROLOL SUCCINATE XL 25 MG TABLET PO SCH ×2 (08:45→21:47)
[2020-08-09] MEDS: APIXABAN 5 MG TABLET PO SCH ×2 (08:45→21:47)
[2020-08-09] MEDS: SKIN HEALING OINT (AQUAPHOR) 50 GM TUBE TOP SCH (08:46)
[2020-08-09] MEDS ORDERED: DIGOXIN 0.5 MG/2 ML AMP IV ONE (12:13)
[2020-08-09] MEDS: FUROSEMIDE 40 MG/4 ML VIAL IV SCH (12:13)
[2020-08-09] MEDS ORDERED: METOPROLOL SUCCINATE XL 25 MG TABLET PO ONE (15:27)
[2020-08-09] MEDS: ATORVASTATIN 20 MG TABLET PO SCH (21:47)
[2020-08-10 06:08] LABS: Calcium 8.6 MG/DL (8.5-10.1)
[2020-08-10 06:09] LABS: Osmolality,Calculated 280.2 MOS/KG (273-304); Potassium 4.3 MMOL/L (3.5-5.1)
[2020-08-10 06:10] LABS: Basophils # 0.1 10*3/uL (0.0-0.2); Basophils % 1.2 % (0.0-0.8); Eosinophils # 0.1 10*3/uL (0.0-0.87); Eosinophils % 2.4 % (0.00-10.9); Hematocrit 40.3 VOL% (42.0-52.0); Immature Granulocytes % 0.5 %; Immature Granulocytes Absolute 0.03 #; Lymphocytes # 1.2 10*3/uL (1.4-4.0); Lymphocytes % 19.6 % (21.2-54.2); Mean Corpuscular HGB Conc 31.5 GM/DL (32-36); Mean Corpuscular Volume 89.8 FL (87-102); Mean Platelet Volume 9.7 FL (9.6-12.0); Monocytes % 16.8 % (1.7-12.7); NRBC # 0.02 10*3/uL; Neutrophils % 59.5 % (38.7-73.9); Platelet Count 269 T/CUMM (130-400); Red Blood Count 4.49 MC/CUMM (3.8-5.5); Red Cell Distribution Width 21.7 % (9.3-17.3); White Blood Count 5.9 T/CUMM (4-12)
[2020-08-10 06:19] LABS: Hemoglobin 12.7 GM/DL (14.0-18.0)
[2020-08-10 06:25] LABS: Calcium 8.8 MG/DL (8.5-10.1); Osmolality,Calculated 280.2 MOS/KG (273-304); Potassium 4.7 MMOL/L (3.5-5.1)
[2020-08-10 06:30] LABS: Eosinophils 4 % (0-10); Lymphocytes 9 % (20-55); Platelet Estimate Normal; Segmented Neutrophils 71 % (50-85); Total Cells Counted 100
[2020-08-10] MEDS: INSULIN LISPRO 100 UNIT/ML SUBCUT SCH ×4 (09:47→20:29)
[2020-08-10] MEDS: ASPIRIN EC 81 MG TABLET PO SCH (09:50)
[2020-08-10] MEDS: SPIRONOLACTONE 25 MG TABLET PO SCH (09:50)
[2020-08-10] MEDS: SKIN HEALING OINT (AQUAPHOR) 50 GM TUBE TOP SCH (09:50)
[2020-08-10] MEDS: AMIODARONE 200 MG TABLET PO SCH ×2 (09:50→20:29)
[2020-08-10] MEDS: APIXABAN 5 MG TABLET PO SCH ×2 (09:51→20:29)
[2020-08-10] MEDS: METOPROLOL SUCCINATE XL 25 MG TABLET PO SCH ×2 (09:51→20:30)
[2020-08-10] MEDS: PANTOPRAZOLE 40 MG TABLET PO SCH (09:51)
[2020-08-10] MEDS: FUROSEMIDE 40 MG/4 ML VIAL IV SCH (09:53)
[2020-08-10] MEDS ORDERED: DIGOXIN 0.5 MG/2 ML AMP IV ONE (10:25)
[2020-08-10] MEDS: ATORVASTATIN 20 MG TABLET PO SCH (20:29)
[2020-08-11 05:41] LABS: Basophils # 0.1 10*3/uL (0.0-0.2); Basophils % 0.9 % (0.0-0.8); Eosinophils # 0.2 10*3/uL (0.0-0.87); Eosinophils % 3.2 % (0.00-10.9); Hematocrit 40.9 VOL% (42.0-52.0); Hemoglobin 12.3 GM/DL (14.0-18.0); Immature Granulocytes % 0.5 %; Immature Granulocytes Absolute 0.03 #; Lymphocytes # 1.1 10*3/uL (1.4-4.0); Lymphocytes % 20.1 % (21.2-54.2); Mean Corpuscular HGB Conc 30.1 GM/DL (32-36); Mean Corpuscular Volume 93.4 FL (87-102); Mean Platelet Volume 9.2 FL (9.6-12.0); Monocytes % 20.2 % (1.7-12.7); Neutrophils % 55.1 % (38.7-73.9); Platelet Count 255 T/CUMM (130-400); Red Blood Count 4.38 MC/CUMM (3.8-5.5); Red Cell Distribution Width 21.7 % (9.3-17.3); White Blood Count 5.6 T/CUMM (4-12)
[2020-08-11 05:58] LABS: Calcium 8.6 MG/DL (8.5-10.1); Osmolality,Calculated 282.2 MOS/KG (273-304); Potassium 4.8 MMOL/L (3.5-5.1)
[2020-08-11 07:16] LABS: Eosinophils 1 % (0-10); Lymphocytes 21 % (20-55); Segmented Neutrophils 70 % (50-85); Total Cells Counted 100
[2020-08-11 07:17] LABS: Hypochromasia Slight; Platelet Estimate Normal; Polychromasia Slight
[2020-08-11] MEDS: INSULIN LISPRO 100 UNIT/ML SUBCUT SCH ×4 (08:40→20:33)
[2020-08-11] MEDS: PANTOPRAZOLE 40 MG TABLET PO SCH (08:42)
[2020-08-11] MEDS: APIXABAN 5 MG TABLET PO SCH ×2 (08:42→20:31)
[2020-08-11] MEDS: FUROSEMIDE 40 MG/4 ML VIAL IV SCH ×2 (08:42→20:36)
[2020-08-11] MEDS: ASPIRIN EC 81 MG TABLET PO SCH (08:42)
[2020-08-11] MEDS: METOPROLOL SUCCINATE XL 25 MG TABLET PO SCH ×2 (08:44→08:48)
[2020-08-11] MEDS: SPIRONOLACTONE 25 MG TABLET PO SCH (08:44)
[2020-08-11] MEDS: AMIODARONE 200 MG TABLET PO SCH ×2 (08:44→20:31)
[2020-08-11] MEDS: SKIN HEALING OINT (AQUAPHOR) 50 GM TUBE TOP SCH (08:46)
[2020-08-11] MEDS: ATORVASTATIN 20 MG TABLET PO SCH (20:31)
[2020-08-12] MEDS ORDERED: LORazepam 1 MG TABLET PO PRN (07:29)
[2020-08-12 08:31] LABS: Basophils # 0.1 10*3/uL (0.0-0.2); Eosinophils # 0.2 10*3/uL (0.0-0.87); Eosinophils % 3.6 % (0.00-10.9); Hemoglobin 11.1 GM/DL (14.0-18.0); Immature Granulocytes % 0.6 %; Immature Granulocytes Absolute 0.03 #; Lymphocytes # 0.8 10*3/uL (1.4-4.0); Lymphocytes % 16.5 % (21.2-54.2); Mean Corpuscular Volume 90.5 FL (87-102); Mean Platelet Volume 9.5 FL (9.6-12.0); Monocytes % 18.7 % (1.7-12.7); Neutrophils % 59.6 % (38.7-73.9); Platelet Count 273 T/CUMM (130-400); Red Blood Count 4.09 MC/CUMM (3.8-5.5); Red Cell Distribution Width 21.2 % (9.3-17.3)
[2020-08-12 08:35] LABS: Calcium 8.4 MG/DL (8.5-10.1); Potassium 4.3 MMOL/L (3.5-5.1)
[2020-08-12] MEDS: INSULIN LISPRO 100 UNIT/ML SUBCUT SCH ×4 (08:45→21:23)
[2020-08-12] MEDS: FUROSEMIDE 40 MG/4 ML VIAL IV SCH ×2 (08:47→21:23)
[2020-08-12] MEDS: AMIODARONE 200 MG TABLET PO SCH ×2 (08:48→21:23)
[2020-08-12] MEDS: APIXABAN 5 MG TABLET PO SCH ×2 (08:48→21:22)
[2020-08-12] MEDS: PANTOPRAZOLE 40 MG TABLET PO SCH (08:48)
[2020-08-12] MEDS: ASPIRIN EC 81 MG TABLET PO SCH (08:49)
[2020-08-12] MEDS: SPIRONOLACTONE 25 MG TABLET PO SCH (08:49)
[2020-08-12] MEDS: SKIN HEALING OINT (AQUAPHOR) 50 GM TUBE TOP SCH (08:49)
[2020-08-12 10:36] LABS: Eosinophils 3 % (0-10); Hypochromasia 2+; Lymphocytes 5 % (20-55); Polychromasia Slight; Segmented Neutrophils 71 % (50-85); Total Cells Counted 100
[2020-08-12 10:37] LABS: Platelet Estimate Normal
[2020-08-12] MEDS: metOLazone 2.5 MG TABLET PO SCH (12:04)
[2020-08-12] MEDS: ATORVASTATIN 20 MG TABLET PO SCH (21:22)
[2020-08-13 05:12] LABS: Basophils # 0.1 10*3/uL (0.0-0.2); Eosinophils # 0.2 10*3/uL (0.0-0.87); Eosinophils % 3.7 % (0.00-10.9); Hematocrit 36.6 VOL% (42.0-52.0); Immature Granulocytes % 0.2 %; Immature Granulocytes Absolute 0.01 #; Lymphocytes # 0.9 10*3/uL (1.4-4.0); Lymphocytes % 18.1 % (21.2-54.2); Mean Corpuscular HGB Conc 30.1 GM/DL (32-36); Mean Corpuscular Volume 90.6 FL (87-102); Mean Platelet Volume 9.3 FL (9.6-12.0); Monocytes % 17.5 % (1.7-12.7); Neutrophils % 59.5 % (38.7-73.9); Platelet Count 249 T/CUMM (130-400); Red Blood Count 4.04 MC/CUMM (3.8-5.5); White Blood Count 4.9 T/CUMM (4-12)
[2020-08-13 05:27] LABS: Calcium 8.5 MG/DL (8.5-10.1); Osmolality,Calculated 282.1 MOS/KG (273-304); Potassium 4.3 MMOL/L (3.5-5.1)
[2020-08-13 05:50] LABS: Eosinophils 7 % (0-10); Hypochromasia 1+; Lymphocytes 17 % (20-55); Microcytosis 1+; Platelet Estimate Adequate; Segmented Neutrophils 62 % (50-85); Total Cells Counted 100
[2020-08-13] MEDS: INSULIN LISPRO 100 UNIT/ML SUBCUT SCH ×4 (09:12→21:27)
[2020-08-13] MEDS: AMIODARONE 200 MG TABLET PO SCH ×2 (09:12→21:26)
[2020-08-13] MEDS: PANTOPRAZOLE 40 MG TABLET PO SCH (09:12)
[2020-08-13] MEDS: ASPIRIN EC 81 MG TABLET PO SCH (09:12)
[2020-08-13] MEDS: metOLazone 2.5 MG TABLET PO SCH (09:13)
[2020-08-13] MEDS: SPIRONOLACTONE 25 MG TABLET PO SCH (09:13)
[2020-08-13] MEDS: APIXABAN 5 MG TABLET PO SCH ×2 (09:13→21:26)
[2020-08-13] MEDS: FUROSEMIDE 40 MG/4 ML VIAL IV SCH ×2 (09:13→21:27)
[2020-08-13] MEDS: SKIN HEALING OINT (AQUAPHOR) 50 GM TUBE TOP SCH (09:13)
[2020-08-13] MEDS: ATORVASTATIN 20 MG TABLET PO SCH (21:27)
[2020-08-14 05:52] LABS: Albumin 2.7 G/DL (3.4-5.0); Bilirubin,Total 1.3 MG/DL (0.2-1.0); Calcium 8.9 MG/DL (8.5-10.1); Osmolality,Calculated 280.2 MOS/KG (273-304); Potassium 4.4 MMOL/L (3.5-5.1); Total Protein 7.3 G/DL (6.4-8.2)
[2020-08-14] MEDS: ASPIRIN EC 81 MG TABLET PO SCH (09:17)
[2020-08-14] MEDS: AMIODARONE 200 MG TABLET PO SCH ×2 (09:17→21:09)
[2020-08-14] MEDS: INSULIN LISPRO 100 UNIT/ML SUBCUT SCH ×4 (09:17→21:10)
[2020-08-14] MEDS: APIXABAN 5 MG TABLET PO SCH ×2 (09:17→21:09)
[2020-08-14] MEDS: PANTOPRAZOLE 40 MG TABLET PO SCH (09:17)
[2020-08-14] MEDS: SPIRONOLACTONE 25 MG TABLET PO SCH (09:17)
[2020-08-14] MEDS: metOLazone 2.5 MG TABLET PO SCH (09:17)
[2020-08-14] MEDS: FUROSEMIDE 40 MG/4 ML VIAL IV SCH ×2 (09:18→21:09)
[2020-08-14] MEDS: SKIN HEALING OINT (AQUAPHOR) 50 GM TUBE TOP SCH (09:18)
[2020-08-14] MEDS: ATORVASTATIN 20 MG TABLET PO SCH (21:09)
[2020-08-15] MEDS: INSULIN LISPRO 100 UNIT/ML SUBCUT SCH ×4 (07:15→20:50)
[2020-08-15] MEDS: SKIN HEALING OINT (AQUAPHOR) 50 GM TUBE TOP SCH (08:57)
[2020-08-15] MEDS: AMIODARONE 200 MG TABLET PO SCH ×2 (08:57→20:49)
[2020-08-15] MEDS: APIXABAN 5 MG TABLET PO SCH ×2 (08:57→20:49)
[2020-08-15] MEDS: metOLazone 2.5 MG TABLET PO SCH (08:57)
[2020-08-15] MEDS: PANTOPRAZOLE 40 MG TABLET PO SCH (08:57)
[2020-08-15] MEDS: FUROSEMIDE 40 MG/4 ML VIAL IV SCH ×2 (08:57→20:50)
[2020-08-15] MEDS: SPIRONOLACTONE 25 MG TABLET PO SCH (08:57)
[2020-08-15] MEDS: ASPIRIN EC 81 MG TABLET PO SCH (08:57)
[2020-08-15] MEDS: ATORVASTATIN 20 MG TABLET PO SCH (20:50)
[2020-08-15] MEDS: METOPROLOL SUCCINATE XL 25 MG TABLET PO SCH (20:50)
[2020-08-16 06:37] LABS: Basophils # 0.1 10*3/uL (0.0-0.2); Basophils % 1.2 % (0.0-0.8); Eosinophils # 0.2 10*3/uL (0.0-0.87); Eosinophils % 4.7 % (0.00-10.9); Hematocrit 37.3 VOL% (42.0-52.0); Hemoglobin 11.2 GM/DL (14.0-18.0); Immature Granulocytes % 0.4 %; Immature Granulocytes Absolute 0.02 #; Lymphocytes % 19.4 % (21.2-54.2); Mean Corpuscular Volume 90.3 FL (87-102); Mean Platelet Volume 9.4 FL (9.6-12.0); Monocytes % 18.6 % (1.7-12.7); Neutrophils % 55.7 % (38.7-73.9); Platelet Count 233 T/CUMM (130-400); Red Blood Count 4.13 MC/CUMM (3.8-5.5); Red Cell Distribution Width 20.2 % (9.3-17.3); White Blood Count 4.9 T/CUMM (4-12)
[2020-08-16 06:56] LABS: Calcium 9.2 MG/DL (8.5-10.1); Osmolality,Calculated 278.4 MOS/KG (273-304); Potassium 4.5 MMOL/L (3.5-5.1)
[2020-08-16 07:22] LABS: Band Neutrophils 2 % (0-10); Eosinophils 1 % (0-10); Lymphocytes 27 % (20-55); Metamyelocytes 1 %; Segmented Neutrophils 58 % (50-85); Total Cells Counted 100
[2020-08-16 07:23] LABS: Anisocytosis Slight; Atypical Lymphocytes Few; Macrocytosis 1+; Platelet Estimate Normal; Target Cells Few
[2020-08-16] MEDS: INSULIN LISPRO 100 UNIT/ML SUBCUT SCH ×2 (08:01→12:10)
[2020-08-16] MEDS: APIXABAN 5 MG TABLET PO SCH (08:23)
[2020-08-16] MEDS: PANTOPRAZOLE 40 MG TABLET PO SCH (08:23)
[2020-08-16] MEDS: FUROSEMIDE 40 MG/4 ML VIAL IV SCH (08:24)
[2020-08-16] MEDS: SPIRONOLACTONE 25 MG TABLET PO SCH (08:24)
[2020-08-16] MEDS: metOLazone 2.5 MG TABLET PO SCH (08:24)
[2020-08-16] MEDS: AMIODARONE 200 MG TABLET PO SCH (08:24)
[2020-08-16] MEDS: ASPIRIN EC 81 MG TABLET PO SCH (08:24)
[2020-08-16] MEDS: SKIN HEALING OINT (AQUAPHOR) 50 GM TUBE TOP SCH (08:24)
[2020-08-16] MEDS: METOPROLOL SUCCINATE XL 25 MG TABLET PO SCH (08:24)
[2020-08-16 11:42] VITALS: BP 104/69
== END 2020-08-16 15:35 | disposition home or self-care (01) | DRG 194 ==
LOC: N.ED 11:28 → SUATTDRO 14:00 → N.EDINP 14:00 → N.TELES 15:29
PROVIDERS: ADMIT Internal Medicine; ATTEND Internal Medicine

== ENCOUNTER 2021-03-03 21:09 | Observation (INO) ==
[2021-03-03] MEDS ORDERED: ALBUTEROL/IPRATROPIUM 3 ML NEB RESP TX STA (22:07)
[2021-03-03] MEDS ORDERED: ASPIRIN 325 MG TABLET PO STA (22:07)
[2021-03-03] MEDS ORDERED: ONDANSETRON 4 MG/2 ML VIAL IV STA (22:07)
[2021-03-03] MEDS ORDERED: NITROGLYCERIN 2% OINT 1 INCH/GM PACK TOP STA (22:07)
[2021-03-03] MEDS ORDERED: FUROSEMIDE 100 MG/10 ML VIAL IV STA (22:07)
[2021-03-03] MEDS ORDERED: methylPREDNISolone SOD SUC 125 MG/2 ML VIAL IV STA (22:07)
[2021-03-03] MEDS ORDERED: MORPHINE 2 MG/1 ML SYRINGE IV STA (22:07)
[2021-03-03 22:33] LABS: Basophils % 0.7 % (0.0-0.8); Eosinophils # 0.1 10*3/uL (0.0-0.87); Eosinophils % 2.3 % (0.00-10.9); Immature Granulocytes % 0.5 %; Immature Granulocytes Absolute 0.03 #; Lymphocytes # 1.1 10*3/uL (1.4-4.0); Lymphocytes % 19.1 % (21.2-54.2); Mean Corpuscular HGB Conc 27.4 GM/DL (32-36); Mean Corpuscular Volume 79.2 FL (87-102); Mean Platelet Volume 9.4 FL (9.6-12.0); NRBC # 0.02 10*3/uL; Neutrophils % 58.4 % (38.7-73.9); Platelet Count 290 T/CUMM (130-400); Red Blood Count 4.42 MC/CUMM (3.8-5.5); Red Cell Distribution Width 20.7 % (9.3-17.3); White Blood Count 5.6 T/CUMM (4-12)
[2021-03-03 22:35] LABS: Hemoglobin 9.6 GM/DL (14.0-18.0)
[2021-03-03 22:51] LABS: Albumin 3.2 G/DL (3.4-5.0); Bilirubin,Total 1.1 MG/DL (0.20-1.00); Calcium 8.5 MG/DL (8.5-10.1); Osmolality,Calculated 283.5 MOS/KG (273-304); Potassium 4.1 MMOL/L (3.5-5.1); Total Protein 7.3 G/DL (6.4-8.2)
[2021-03-03 22:54] LABS: Bacteria,Urine Occasional /HPF (Few); Bilirubin,Urine Negative (Negative); Blood, Urine Negative (Negative); Glucose,Urine (UA) Negative (Negative); Ketones,Urine Negative (Negative); Mucus,Urine Occasional /LPF (Occasional); Nitrite,Urine Negative (Negative); Protein,Urine Negative; RBC,Urine 2 /HPF (0-4); Squamous Epithelial Cell,Urine Occasional /HPF (0-10); Urine Appearance CLEAR (Clear); Urine Color Straw (Yellow); Urine Specific Gravity 1.005 (1.001-1.035); Urine Urobilinogen < 2.0 EU/DL (0.2-1.0)
[2021-03-03 23:08] LABS: Band Neutrophils 1 % (0-10); Eosinophils 2 % (0-10); Lymphocytes 20 % (20-55); Platelet Estimate Adequate; Segmented Neutrophils 57 % (50-85); Total Cells Counted 100
[2021-03-04] MEDS ORDERED: DEXTROSE 50% 25 GM/50 ML SYRINGE IV PRN (00:07)
[2021-03-04] MEDS ORDERED: ACETAMINOPHEN 325 MG TABLET PO PRN (00:07)
[2021-03-04] MEDS ORDERED: ONDANSETRON 4 MG/2 ML VIAL IV PRN (00:07)
[2021-03-04] MEDS ORDERED: GLUCAGON 1 MG VIAL IM PRN (00:07)
[2021-03-04 02:17] LABS: Barbiturates Screen,Urine Negative (Negative); Benzodiazepines Screen,Urine Negative (Negative); Cannabinoid Screen,Urine Negative (Negative); Opiate Screen,Urine Negative (Negative); Phencyclidine Screen,Urine Negative (Negative)
[2021-03-04 06:19] LABS: INR 1.2; PT Patient Result 13.1 SECS (10.5-12.0)
[2021-03-04 06:40] LABS: % Iron Saturation 3.8 % (18-50); Ferritin 16.8 ng/mL (26-388)
[2021-03-04 06:42] LABS: Calcium 8.7 MG/DL (8.5-10.1); Osmolality,Calculated 284.5 MOS/KG (273-304); Potassium 4.1 MMOL/L (3.5-5.1); Risk Ratio 2.23; Thyroid Stimulating Hormone 1.38 uIU/ml (0.358-3.74); VLDL Cholesterol 9.4 MG/DL
[2021-03-04 07:37] LABS: Basophils % 0.2 % (0.0-0.8); Hemoglobin 9.5 GM/DL (14.0-18.0); Immature Granulocytes % 0.2 %; Immature Granulocytes Absolute 0.01 #; Lymphocytes # 0.4 10*3/uL (1.4-4.0); Lymphocytes % 8.7 % (21.2-54.2); Mean Corpuscular HGB Conc 27.9 GM/DL (32-36); Mean Corpuscular Volume 78.2 FL (87-102); Mean Platelet Volume 9.3 FL (9.6-12.0); Neutrophils % 88.9 % (38.7-73.9); Platelet Count 259 T/CUMM (130-400); Red Blood Count 4.36 MC/CUMM (3.8-5.5); Red Cell Distribution Width 20.6 % (9.3-17.3); White Blood Count 4.6 T/CUMM (4-12)
[2021-03-04 07:38] LABS: Hematocrit 34.1 VOL% (42.0-52.0)
[2021-03-04 07:56] LABS: Hypochromasia 2+
[2021-03-04 07:57] LABS: Microcytosis 1+; Ovalocytes Slight; Polychromasia Slight
[2021-03-04 07:58] LABS: Acanthocytes Few; Platelet Estimate Normal
[2021-03-04] MEDS: FUROSEMIDE 40 MG/4 ML VIAL IV SCH ×2 (10:10→16:14)
[2021-03-04] MEDS: PANTOPRAZOLE 40 MG TABLET PO SCH (10:10)
[2021-03-04] MEDS: APIXABAN 5 MG TABLET PO SCH ×2 (10:10→20:36)
[2021-03-04] MEDS: AMIODARONE 200 MG TABLET PO SCH ×2 (10:10→20:36)
[2021-03-04] MEDS: ASPIRIN CHEW 81 MG TABLET PO SCH (10:10)
[2021-03-04] MEDS: FERROUS SULFATE 325 MG TABLET PO SCH ×2 (10:11→20:36)
[2021-03-04] MEDS: carvediloL 3.125 MG TABLET PO SCH ×2 (10:11→20:36)
[2021-03-04] MEDS: ATORVASTATIN 20 MG TABLET PO SCH (20:36)
[2021-03-05 06:19] LABS: Calcium 8.2 MG/DL (8.5-10.1); Osmolality,Calculated 288.4 MOS/KG (273-304); Potassium 4.1 MMOL/L (3.5-5.1)
[2021-03-05 06:33] LABS: Basophils % 0.1 % (0.0-0.8); Hematocrit 29.7 VOL% (42.0-52.0); Hemoglobin 8.6 GM/DL (14.0-18.0); Immature Granulocytes % 0.3 %; Immature Granulocytes Absolute 0.03 #; Lymphocytes # 0.7 10*3/uL (1.4-4.0); Lymphocytes % 8.4 % (21.2-54.2); Mean Corpuscular Volume 77.3 FL (87-102); Mean Platelet Volume 9.5 FL (9.6-12.0); Monocytes % 14.8 % (1.7-12.7); Neutrophils % 76.4 % (38.7-73.9); Platelet Count 236 T/CUMM (130-400); Red Blood Count 3.84 MC/CUMM (3.8-5.5); Red Cell Distribution Width 20.3 % (9.3-17.3); White Blood Count 8.8 T/CUMM (4-12)
[2021-03-05 06:42] LABS: Hypochromasia 2+; Microcytosis 1+
[2021-03-05 06:43] LABS: Acanthocytes Few; Polychromasia Slight; Target Cells Few
[2021-03-05 06:44] LABS: Ovalocytes Slight; Platelet Estimate Normal
[2021-03-05] MEDS: FERROUS SULFATE 325 MG TABLET PO SCH ×2 (09:50→21:18)
[2021-03-05] MEDS: AMIODARONE 200 MG TABLET PO SCH ×2 (09:50→21:18)
[2021-03-05] MEDS: carvediloL 3.125 MG TABLET PO SCH (09:50)
[2021-03-05] MEDS: APIXABAN 5 MG TABLET PO SCH ×2 (09:50→21:18)
[2021-03-05] MEDS: FUROSEMIDE 40 MG/4 ML VIAL IV SCH ×2 (09:50→16:40)
[2021-03-05] MEDS: ASPIRIN CHEW 81 MG TABLET PO SCH (09:50)
[2021-03-05] MEDS: PANTOPRAZOLE 40 MG TABLET PO SCH (09:51)
[2021-03-05] MEDS: hydrALAZINE 10 MG TABLET PO SCH ×2 (16:39→21:18)
[2021-03-05] MEDS: ATORVASTATIN 20 MG TABLET PO SCH (21:18)
[2021-03-06 05:58] LABS: Calcium 8.4 MG/DL (8.5-10.1); Osmolality,Calculated 284.7 MOS/KG (273-304); Potassium 3.9 MMOL/L (3.5-5.1)
[2021-03-06 06:29] LABS: Basophils # 0.1 10*3/uL (0.0-0.2); Basophils % 0.7 % (0.0-0.8); Eosinophils # 0.1 10*3/uL (0.0-0.87); Eosinophils % 1.1 % (0.00-10.9); Hematocrit 30.1 VOL% (42.0-52.0); Immature Granulocytes % 0.1 %; Immature Granulocytes Absolute 0.01 #; Lymphocytes # 1.2 10*3/uL (1.4-4.0); Lymphocytes % 16.4 % (21.2-54.2); Mean Corpuscular HGB Conc 28.9 GM/DL (32-36); Mean Corpuscular Volume 77.2 FL (87-102); Mean Platelet Volume 9.4 FL (9.6-12.0); Monocytes % 15.1 % (1.7-12.7); NRBC # 0.06 10*3/uL; Neutrophils % 66.6 % (38.7-73.9); Platelet Count 229 T/CUMM (130-400); Red Cell Distribution Width 20.5 % (9.3-17.3); White Blood Count 7.5 T/CUMM (4-12)
[2021-03-06 06:30] LABS: Hemoglobin 8.7 GM/DL (14.0-18.0)
[2021-03-06 06:34] LABS: Hypochromasia 1+; Microcytosis 1+; Platelet Estimate Normal
[2021-03-06] MEDS ORDERED: MAGNESIUM SULF RIDER 2 GM/50 ML PREMIX IV ONE (07:19)
[2021-03-06] MEDS ORDERED: ISOSORBIDE MONONITRATE 30 MG TABLET PO SCH (09:00)
[2021-03-06] MEDS: PANTOPRAZOLE 40 MG TABLET PO SCH (09:31)
[2021-03-06] MEDS: FERROUS SULFATE 325 MG TABLET PO SCH (09:31)
[2021-03-06] MEDS: ASPIRIN CHEW 81 MG TABLET PO SCH (09:31)
[2021-03-06] MEDS: APIXABAN 5 MG TABLET PO SCH (09:31)
[2021-03-06] MEDS: AMIODARONE 200 MG TABLET PO SCH (09:31)
[2021-03-06] MEDS: FUROSEMIDE 40 MG/4 ML VIAL IV SCH (09:32)
[2021-03-06] MEDS: hydrALAZINE 10 MG TABLET PO SCH (09:32)
[2021-03-06 12:46] VITALS: BP 109/73
== END 2021-03-06 15:55 | disposition home or self-care (01) ==
LOC: N.EDINP 21:09 → N.ED 21:09 → SUATTDRO 03-04 00:07 → N.TELEN 03-04 04:29
PROVIDERS: ADMIT Internal Medicine; ATTEND Internal Medicine

== ENCOUNTER 2021-03-14 02:40 | Inpatient (IN) ==
[2021-03-14] MEDS ORDERED: TISSUE ADHESIVE 1 EACH APPLICATOR TOP ONE (02:56)
[2021-03-14] MEDS ORDERED: DIPH/TET/ACEL PERT BOOSTER VACCINE 0.5 ML VIAL IM ONE (03:37)
[2021-03-14 04:10] LABS: Alanine Aminotransferase < 9 U/L (16-61); Albumin 2.9 G/DL (3.4-5.0); Alkaline Phosphatase 114 U/L (45-117); Aspartate Amino Transferase 16 U/L (0-37); Blood Urea Nitrogen 20 MG/DL (7-18); Calcium 8.4 MG/DL (8.5-10.1); Carbon Dioxide 28 MMOL/L (21-32); Estimated Glom Filtration Rate 66 ML/MIN; Glucose 109 MG/DL (74-106); Osmolality,Calculated 282.4 MOS/KG (273-304); Sodium 140 MMOL/L (136-145); Total Protein 6.9 G/DL (6.4-8.2)
[2021-03-14 04:25] LABS: Basophils % 0.4 % (0.0-0.8); Eosinophils # 0.2 10*3/uL (0.0-0.87); Eosinophils % 2.8 % (0.00-10.9); Hematocrit 30.7 VOL% (42.0-52.0); Immature Granulocytes % 0.4 %; Immature Granulocytes Absolute 0.03 #; Lymphocytes # 1.1 10*3/uL (1.4-4.0); Mean Corpuscular HGB Conc 27.7 GM/DL (32-36); Mean Corpuscular Volume 77.9 FL (87-102); Monocytes % 22.8 % (1.7-12.7); Neutrophils % 57.6 % (38.7-73.9); Platelet Count 209 T/CUMM (130-400); Red Blood Count 3.94 MC/CUMM (3.8-5.5); Red Cell Distribution Width 21.5 % (9.3-17.3); White Blood Count 6.8 T/CUMM (4-12)
[2021-03-14 04:27] LABS: Hemoglobin 8.5 GM/DL (14.0-18.0)
[2021-03-14 04:38] LABS: Eosinophils 5 % (0-10); Hypochromia 1+; Lymphocytes 11 % (20-55); Microcytosis 1+; Platelet Estimate Adequate; Segmented Neutrophils 65 % (50-85); Total Cells Counted 100
[2021-03-14 05:23] LABS: Bacteria,Urine Occasional /HPF (Few); Blood, Urine Negative (Negative); Glucose,Urine (UA) Negative (Negative); Hyaline Casts,Urine 31 /LPF (0-3); Ketones,Urine 5 mg/dL (Negative); Mucus,Urine Occasional /LPF (Occasional); Nitrite,Urine Negative (Negative); Protein,Urine 100 MG/DL; Squamous Epithelial Cell,Urine Occasional /HPF (0-10); Urine Appearance Slightly Hazy (Clear); Urine Color Amber (Yellow); Urine Specific Gravity 1.026 (1.001-1.035)
[2021-03-14 05:24] LABS: Bilirubin,Urine Small mg/dL (Negative)
[2021-03-14 07:08] LABS: Barbiturates Screen,Urine Negative (Negative); Benzodiazepines Screen,Urine Negative (Negative); Cannabinoid Screen,Urine Negative (Negative); Opiate Screen,Urine Negative (Negative); Phencyclidine Screen,Urine Negative (Negative)
[2021-03-14] MEDS ORDERED: ONDANSETRON 4 MG/2 ML VIAL IV STA (10:46)
[2021-03-14] MEDS ORDERED: HYDROmorphone 2 MG/1 ML VIAL IV STA (10:46)
[2021-03-14] MEDS ORDERED: hydrALAZINE 20 MG/1 ML VIAL IV PRN (11:12)
[2021-03-14] MEDS ORDERED: ACETAMINOPHEN 325 MG TABLET PO PRN (11:12)
[2021-03-14] MEDS ORDERED: MAGNESIUM SULF RIDER 4 GM/100 ML PREMIX IV PRN (11:12)
[2021-03-14] MEDS ORDERED: NICOTINE 21 MG/24 HR PATCH TRANSDERM PRN (11:12)
[2021-03-14] MEDS ORDERED: GLUCAGON 1 MG VIAL IM PRN (11:12)
[2021-03-14] MEDS ORDERED: ONDANSETRON 4 MG/2 ML VIAL IV PRN (11:12)
[2021-03-14] MEDS ORDERED: DEXTROSE 50% 25 GM/50 ML SYRINGE IV PRN (11:12)
[2021-03-14] MEDS ORDERED: MAGNESIUM SULF RIDER 2 GM/50 ML PREMIX IV PRN (11:12)
[2021-03-14] MEDS ORDERED: FUROSEMIDE 40 MG/4 ML VIAL IV STA (11:16)
[2021-03-14] MEDS ORDERED: ENOXAPARIN 40 MG/0.4 ML SYRINGE SUBCUT SCH (11:30)
[2021-03-14] MEDS: hydrALAZINE 10 MG TABLET PO SCH ×2 (16:03→20:55)
[2021-03-14] MEDS: FUROSEMIDE 40 MG/4 ML VIAL IV SCH (16:03)
[2021-03-14] MEDS: FERROUS SULFATE 325 MG TABLET PO SCH (20:55)
[2021-03-14] MEDS: ATORVASTATIN 20 MG TABLET PO SCH (20:55)
[2021-03-14] MEDS: APIXABAN 5 MG TABLET PO SCH (20:55)
[2021-03-14] MEDS: AMIODARONE 200 MG TABLET PO SCH (20:55)
[2021-03-15 05:54] LABS: Calcium 7.9 MG/DL (8.5-10.1); Potassium 5.1 MMOL/L (3.5-5.1); Thyroid Stimulating Hormone 2.26 uIU/ml (0.358-3.74)
[2021-03-15 06:20] LABS: Basophils % 0.6 % (0.0-0.8); Eosinophils # 0.2 10*3/uL (0.0-0.87); Eosinophils % 2.8 % (0.00-10.9); Hematocrit 32.1 VOL% (42.0-52.0); Immature Granulocytes % 0.4 %; Immature Granulocytes Absolute 0.03 #; Lymphocytes # 1.2 10*3/uL (1.4-4.0); Lymphocytes % 17.6 % (21.2-54.2); Mean Corpuscular HGB Conc 28.3 GM/DL (32-36); Mean Corpuscular Volume 77.5 FL (87-102); Mean Platelet Volume 9.8 FL (9.6-12.0); Monocytes % 22.3 % (1.7-12.7); Neutrophils % 56.3 % (38.7-73.9); Platelet Count 211 T/CUMM (130-400); Red Blood Count 4.14 MC/CUMM (3.8-5.5); Red Cell Distribution Width 21.8 % (9.3-17.3); White Blood Count 6.9 T/CUMM (4-12)
[2021-03-15 06:23] LABS: Hemoglobin 9.1 GM/DL (14.0-18.0)
[2021-03-15 06:27] LABS: Eosinophils 1 % (0-10); Hypochromia Slight; Lymphocytes 24 % (20-55); Microcytosis 1+; Platelet Estimate Normal; Segmented Neutrophils 62 % (50-85); Total Cells Counted 100
[2021-03-15 06:28] LABS: Target Cells Few
[2021-03-15] MEDS: ISOSORBIDE MONONITRATE 30 MG TABLET PO SCH (08:15)
[2021-03-15] MEDS: SPIRONOLACTONE 25 MG TABLET PO SCH (08:16)
[2021-03-15] MEDS: PANTOPRAZOLE 40 MG TABLET PO SCH (08:16)
[2021-03-15] MEDS: hydrALAZINE 10 MG TABLET PO SCH ×3 (08:16→20:54)
[2021-03-15] MEDS: FERROUS SULFATE 325 MG TABLET PO SCH ×2 (08:16→20:54)
[2021-03-15] MEDS: ASPIRIN EC 81 MG TABLET PO SCH (08:16)
[2021-03-15] MEDS: APIXABAN 5 MG TABLET PO SCH ×2 (08:16→20:54)
[2021-03-15] MEDS: metOLazone 5 MG TABLET PO SCH (08:16)
[2021-03-15] MEDS: AMIODARONE 200 MG TABLET PO SCH ×2 (08:17→20:54)
[2021-03-15] MEDS: FUROSEMIDE 40 MG/4 ML VIAL IV SCH (08:21)
[2021-03-15] MEDS: ATORVASTATIN 20 MG TABLET PO SCH (20:54)
[2021-03-16 06:08] LABS: Calcium 8.3 MG/DL (8.5-10.1); Osmolality,Calculated 277.2 MOS/KG (273-304); Potassium 4.9 MMOL/L (3.5-5.1)
[2021-03-16 06:17] LABS: Basophils % 0.5 % (0.0-0.8); Eosinophils # 0.2 10*3/uL (0.0-0.87); Eosinophils % 2.9 % (0.00-10.9); Hemoglobin 8.3 GM/DL (14.0-18.0); Immature Granulocytes % 0.5 %; Immature Granulocytes Absolute 0.03 #; Mean Corpuscular HGB Conc 27.7 GM/DL (32-36); Mean Corpuscular Volume 77.5 FL (87-102); Mean Platelet Volume 10.1 FL (9.6-12.0); Monocytes % 20.6 % (1.7-12.7); Neutrophils % 60.5 % (38.7-73.9); Platelet Count 212 T/CUMM (130-400); Red Blood Count 3.87 MC/CUMM (3.8-5.5); Red Cell Distribution Width 21.8 % (9.3-17.3); White Blood Count 6.6 T/CUMM (4-12)
[2021-03-16 06:23] LABS: Eosinophils 4 % (0-10); Lymphocytes 16 % (20-55); Metamyelocytes 1 %; Segmented Neutrophils 65 % (50-85); Total Cells Counted 100
[2021-03-16 06:24] LABS: Platelet Estimate Normal; Target Cells 1+
[2021-03-16 06:25] LABS: Acanthocytes Few; Hypochromia Slight; Polychromasia Few
[2021-03-16] MEDS: APIXABAN 5 MG TABLET PO SCH ×2 (08:30→21:57)
[2021-03-16] MEDS: ASPIRIN EC 81 MG TABLET PO SCH (08:30)
[2021-03-16] MEDS: PANTOPRAZOLE 40 MG TABLET PO SCH (08:30)
[2021-03-16] MEDS: metOLazone 5 MG TABLET PO SCH (08:30)
[2021-03-16] MEDS: SPIRONOLACTONE 25 MG TABLET PO SCH (08:30)
[2021-03-16] MEDS: hydrALAZINE 10 MG TABLET PO SCH ×3 (08:31→21:57)
[2021-03-16] MEDS: ISOSORBIDE MONONITRATE 30 MG TABLET PO SCH (08:32)
[2021-03-16] MEDS: AMIODARONE 200 MG TABLET PO SCH ×2 (08:32→21:57)
[2021-03-16] MEDS: FERROUS SULFATE 325 MG TABLET PO SCH ×2 (08:32→21:57)
[2021-03-16] MEDS: ATORVASTATIN 20 MG TABLET PO SCH (21:57)
[2021-03-17 05:59] LABS: Calcium 8.1 MG/DL (8.5-10.1); Osmolality,Calculated 275.4 MOS/KG (273-304); Potassium 4.6 MMOL/L (3.5-5.1)
[2021-03-17 06:11] LABS: Basophils % 0.6 % (0.0-0.8); Eosinophils # 0.2 10*3/uL (0.0-0.87); Eosinophils % 2.4 % (0.00-10.9); Hemoglobin 8.1 GM/DL (14.0-18.0); Immature Granulocytes % 0.4 %; Immature Granulocytes Absolute 0.03 #; Lymphocytes % 14.1 % (21.2-54.2); Mean Corpuscular HGB Conc 27.9 GM/DL (32-36); Mean Corpuscular Volume 78.4 FL (87-102); Mean Platelet Volume 10.1 FL (9.6-12.0); Monocytes % 16.9 % (1.7-12.7); NRBC # 0.02 10*3/uL; Neutrophils % 65.6 % (38.7-73.9); Platelet Count 231 T/CUMM (130-400); Red Cell Distribution Width 21.8 % (9.3-17.3); White Blood Count 6.8 T/CUMM (4-12)
[2021-03-17 06:25] LABS: Band Neutrophils 2 % (0-10); Eosinophils 2 % (0-10); Lymphocytes 15 % (20-55); Platelet Estimate Normal; Segmented Neutrophils 64 % (50-85); Total Cells Counted 100
[2021-03-17 06:26] LABS: Anisocytosis 2+; Hypochromia 1+; Ovalocytes Few; Poikilocytosis Slight; Target Cells Few; Tear Drop Cells Few
[2021-03-17] MEDS: hydrALAZINE 10 MG TABLET PO SCH ×3 (08:24→20:42)
[2021-03-17] MEDS: AMIODARONE 200 MG TABLET PO SCH ×2 (08:24→20:43)
[2021-03-17] MEDS: metOLazone 5 MG TABLET PO SCH (08:24)
[2021-03-17] MEDS: ASPIRIN EC 81 MG TABLET PO SCH (08:24)
[2021-03-17] MEDS: FERROUS SULFATE 325 MG TABLET PO SCH ×2 (08:24→20:43)
[2021-03-17] MEDS: SPIRONOLACTONE 25 MG TABLET PO SCH (08:24)
[2021-03-17] MEDS: PANTOPRAZOLE 40 MG TABLET PO SCH (08:24)
[2021-03-17] MEDS: ISOSORBIDE MONONITRATE 30 MG TABLET PO SCH (08:25)
[2021-03-17] MEDS: APIXABAN 5 MG TABLET PO SCH ×2 (08:25→20:42)
[2021-03-17] MEDS ORDERED: FUROSEMIDE 40 MG/4 ML VIAL IV ONE (09:40)
[2021-03-17] MEDS: ATORVASTATIN 20 MG TABLET PO SCH (20:43)
[2021-03-18 05:37] LABS: Basophils % 0.7 % (0.0-0.8); Eosinophils # 0.2 10*3/uL (0.0-0.87); Hematocrit 29.3 VOL% (42.0-52.0); Hemoglobin 8.3 GM/DL (14.0-18.0); Immature Granulocytes % 0.5 %; Immature Granulocytes Absolute 0.03 #; Lymphocytes # 0.9 10*3/uL (1.4-4.0); Lymphocytes % 14.7 % (21.2-54.2); Mean Corpuscular HGB Conc 28.3 GM/DL (32-36); Mean Corpuscular Volume 77.3 FL (87-102); Mean Platelet Volume 9.9 FL (9.6-12.0); Monocytes % 16.4 % (1.7-12.7); Neutrophils % 64.7 % (38.7-73.9); Platelet Count 229 T/CUMM (130-400); Red Blood Count 3.79 MC/CUMM (3.8-5.5); Red Cell Distribution Width 21.9 % (9.3-17.3)
[2021-03-18 05:58] LABS: Eosinophils 4 % (0-10); Hypochromia 1+; Lymphocytes 19 % (20-55); Microcytosis 1+; Platelet Estimate Adequate; Segmented Neutrophils 64 % (50-85); Total Cells Counted 100
[2021-03-18 06:00] LABS: Osmolality,Calculated 274.4 MOS/KG (273-304); Potassium 4.6 MMOL/L (3.5-5.1)
[2021-03-18] MEDS: metOLazone 5 MG TABLET PO SCH (08:43)
[2021-03-18] MEDS: SPIRONOLACTONE 25 MG TABLET PO SCH (08:43)
[2021-03-18] MEDS: PANTOPRAZOLE 40 MG TABLET PO SCH (10:06)
[2021-03-18] MEDS: AMIODARONE 200 MG TABLET PO SCH ×2 (10:06→20:59)
[2021-03-18] MEDS: FERROUS SULFATE 325 MG TABLET PO SCH ×2 (10:06→20:59)
[2021-03-18] MEDS: APIXABAN 5 MG TABLET PO SCH ×2 (10:06→20:59)
[2021-03-18] MEDS: ASPIRIN EC 81 MG TABLET PO SCH (10:07)
[2021-03-18] MEDS: hydrALAZINE 10 MG TABLET PO SCH ×3 (10:07→20:59)
[2021-03-18] MEDS: ISOSORBIDE MONONITRATE 30 MG TABLET PO SCH (10:07)
[2021-03-18] MEDS ORDERED: FUROSEMIDE 40 MG/4 ML VIAL IV SCH (11:00)
[2021-03-18] MEDS: FUROSEMIDE 40 MG/4 ML VIAL IV SCH (16:14)
[2021-03-18] MEDS: ATORVASTATIN 20 MG TABLET PO SCH (20:59)
[2021-03-19 05:52] LABS: Calcium 8.5 MG/DL (8.5-10.1); Osmolality,Calculated 278.4 MOS/KG (273-304); Potassium 4.3 MMOL/L (3.5-5.1)
[2021-03-19 06:07] LABS: Basophils % 0.7 % (0.0-0.8); Eosinophils # 0.2 10*3/uL (0.0-0.87); Eosinophils % 3.7 % (0.00-10.9); Hematocrit 28.8 VOL% (42.0-52.0); Hemoglobin 8.4 GM/DL (14.0-18.0); Immature Granulocytes % 0.3 %; Immature Granulocytes Absolute 0.02 #; Lymphocytes # 0.7 10*3/uL (1.4-4.0); Lymphocytes % 12.3 % (21.2-54.2); Mean Corpuscular HGB Conc 29.2 GM/DL (32-36); Mean Platelet Volume 9.5 FL (9.6-12.0); Monocytes % 19.3 % (1.7-12.7); Neutrophils % 63.7 % (38.7-73.9); Platelet Count 231 T/CUMM (130-400); Red Blood Count 3.74 MC/CUMM (3.8-5.5); Red Cell Distribution Width 22.1 % (9.3-17.3)
[2021-03-19 06:21] LABS: Eosinophils 4 % (0-10); Hypochromia 1+; Lymphocytes 9 % (20-55); Microcytosis 1+; Platelet Estimate Adequate; Segmented Neutrophils 66 % (50-85); Total Cells Counted 100
[2021-03-19] MEDS: APIXABAN 5 MG TABLET PO SCH ×2 (09:09→21:06)
[2021-03-19] MEDS: ASPIRIN EC 81 MG TABLET PO SCH (09:09)
[2021-03-19] MEDS: SPIRONOLACTONE 25 MG TABLET PO SCH (09:09)
[2021-03-19] MEDS: FERROUS SULFATE 325 MG TABLET PO SCH ×2 (09:10→21:06)
[2021-03-19] MEDS: hydrALAZINE 10 MG TABLET PO SCH ×3 (09:10→21:06)
[2021-03-19] MEDS: metOLazone 5 MG TABLET PO SCH (09:10)
[2021-03-19] MEDS: AMIODARONE 200 MG TABLET PO SCH ×2 (09:10→21:06)
[2021-03-19] MEDS: PANTOPRAZOLE 40 MG TABLET PO SCH (09:10)
[2021-03-19] MEDS: ISOSORBIDE MONONITRATE 30 MG TABLET PO SCH (09:10)
[2021-03-19] MEDS: FUROSEMIDE 40 MG/4 ML VIAL IV SCH ×2 (09:15→16:05)
[2021-03-19] MEDS: ATORVASTATIN 20 MG TABLET PO SCH (21:05)
[2021-03-20 05:33] LABS: Basophils % 0.6 % (0.0-0.8); Eosinophils # 0.2 10*3/uL (0.0-0.87); Hematocrit 28.5 VOL% (42.0-52.0); Hemoglobin 8.2 GM/DL (14.0-18.0); Immature Granulocytes % 0.4 %; Immature Granulocytes Absolute 0.02 #; Lymphocytes # 0.7 10*3/uL (1.4-4.0); Lymphocytes % 13.1 % (21.2-54.2); Mean Corpuscular HGB Conc 28.8 GM/DL (32-36); Mean Corpuscular Volume 77.2 FL (87-102); Mean Platelet Volume 9.8 FL (9.6-12.0); Monocytes % 18.6 % (1.7-12.7); Neutrophils % 64.3 % (38.7-73.9); Platelet Count 226 T/CUMM (130-400); Red Blood Count 3.69 MC/CUMM (3.8-5.5); Red Cell Distribution Width 22.4 % (9.3-17.3); White Blood Count 5.3 T/CUMM (4-12)
[2021-03-20 05:59] LABS: Calcium 8.6 MG/DL (8.5-10.1); Osmolality,Calculated 275.5 MOS/KG (273-304); Potassium 4.5 MMOL/L (3.5-5.1)
[2021-03-20 06:01] LABS: Eosinophils 4 % (0-10); Hypochromia 1+; Lymphocytes 16 % (20-55); Microcytosis 1+; Platelet Estimate Adequate; Segmented Neutrophils 69 % (50-85); Total Cells Counted 100
[2021-03-20] MEDS: APIXABAN 5 MG TABLET PO SCH ×2 (09:37→21:12)
[2021-03-20] MEDS: SPIRONOLACTONE 25 MG TABLET PO SCH (09:37)
[2021-03-20] MEDS: hydrALAZINE 10 MG TABLET PO SCH ×3 (09:38→21:13)
[2021-03-20] MEDS: ISOSORBIDE MONONITRATE 30 MG TABLET PO SCH (09:38)
[2021-03-20] MEDS: metOLazone 5 MG TABLET PO SCH (09:38)
[2021-03-20] MEDS: PANTOPRAZOLE 40 MG TABLET PO SCH (09:38)
[2021-03-20] MEDS: AMIODARONE 200 MG TABLET PO SCH ×2 (09:38→21:12)
[2021-03-20] MEDS: FERROUS SULFATE 325 MG TABLET PO SCH ×2 (09:38→21:12)
[2021-03-20] MEDS: ASPIRIN EC 81 MG TABLET PO SCH (09:38)
[2021-03-20] MEDS: FUROSEMIDE 40 MG/4 ML VIAL IV SCH ×2 (09:49→16:48)
[2021-03-20] MEDS: ATORVASTATIN 20 MG TABLET PO SCH (21:12)
[2021-03-21 05:29] LABS: Calcium 8.8 MG/DL (8.5-10.1); Osmolality,Calculated 280.1 MOS/KG (273-304); Potassium 4.4 MMOL/L (3.5-5.1)
[2021-03-21] MEDS: APIXABAN 5 MG TABLET PO SCH (08:28)
[2021-03-21] MEDS: SPIRONOLACTONE 25 MG TABLET PO SCH (08:28)
[2021-03-21] MEDS: ISOSORBIDE MONONITRATE 30 MG TABLET PO SCH (08:28)
[2021-03-21] MEDS: FERROUS SULFATE 325 MG TABLET PO SCH (08:28)
[2021-03-21] MEDS: metOLazone 5 MG TABLET PO SCH (08:28)
[2021-03-21] MEDS: hydrALAZINE 10 MG TABLET PO SCH (08:28)
[2021-03-21] MEDS: ASPIRIN EC 81 MG TABLET PO SCH (08:29)
[2021-03-21] MEDS: PANTOPRAZOLE 40 MG TABLET PO SCH (08:29)
[2021-03-21] MEDS: AMIODARONE 200 MG TABLET PO SCH (08:29)
[2021-03-21] MEDS: FUROSEMIDE 40 MG/4 ML VIAL IV SCH (08:33)
[2021-03-21 08:36] VITALS: BP 105/78
== END 2021-03-21 11:56 | disposition home or self-care (01) | DRG 204 ==
LOC: N.ED 02:40 → SUATTDRO 11:12 → N.EDINP 11:12 → N.TELES 14:42
PROVIDERS: ADMIT Internal Medicine; ATTEND Hospitalist